=== PATIENT | male | born 1950 | race African-American/Black ===

== ENCOUNTER 2018-01-09 14:34 | Inpatient (IN) | payer MEDICARE, MEDICAID ==
[2018-01-09 14:53] LABS: #Eosinphils 0.4 thou/uL (0.0-0.7); #Lymphocytes 2.5 thou/uL (1.20-3.40); #Monocytes 0.6 thou/uL (0.11-0.59); #Neutrophils 4.7 thou/uL (1.40-6.50); %Eosinophils 4.7 % (0.0-10.0); %Lymphocytes 30.9 % (21.0-51.0); %Monocytes 7.4 % (0.0-10.0); Hemoglobin 15.8 g/dL (14.0-18.0); Mean Corpuscular HGB CONC 33.4 g/dL (32.0-36.0); Mean Corpuscular Volume 89.6 fl (80.0-94.0); Platelet Count 251 thou/uL (130-400); Red Blood Cell (RBC) Count 5.29 mill/uL (4.70-6.10); White Blood Cell (WBC) Count 8.2 thou/uL (4.8-10.8)
--- NOTE | 2018-01-09 14:57 | CT ---
CT OF THE BRAIN WITHOUT CONTRAST: Indication: Stroke activation for altered mental status. Comparison: 05-14-11 FINDINGS: There has been interval development of worsening moderate chronic small vessel white matter ischemic change. Septum pellucidum and third ventricle are midline. No acute infarct, hemorrhage, or hydroceph alus is present. Skull and soft tissues are unremarkable. IMPRESSION: 1. No acute intracranial abnormality. 2. Worsening chronic small vessel white matter ischemic change. 3. Findings called to Dr. Mullins at 2:43 p.m. on 01-09-18. Code CR POS: [facility]
[2018-01-09 14:59] LABS: PTT 25.2 SEC (22.9-36.1); Prothrombin Time 12.9 SEC (12.0-14.7)
[2018-01-09] MEDS ORDERED: Naloxone HCl 0.4 mg/ml Vial ONE (15:02)
[2018-01-09 15:09] LABS: ALT (SGPT) 18 U/L (8-55); AST (SGOT) 17 U/L (5-34); Albumin 4.3 g/dL (3.4-4.8); Alkaline Phosphatase 98 U/L (40-150); Anion Gap 13 mmol/L (10-20); BUN (Urea Nitrogen) 11 mg/dL (8.4-25.7); Bilirubin, Total 1.1 mg/dL (0.2-1.2); Calc. Creatinine Clearance 0 mL/min (70-130); Calcium 9.8 mg/dL (7.8-10.44); Carbon Dioxide 23 mmol/L (23-31); Chloride 104 mmol/L (98-107); Estimated GFR-MDRD 69; Globulin 3.4 g/dL (2.4-3.5); Glucose 184 mg/dL (80-115); Potassium 3.2 mmol/L (3.5-5.1); Protein, Total 7.7 g/dL (5.8-8.1); Sodium 137 mmol/L (136-145)
[2018-01-09 15:12] LABS: CKMB 2.9 ng/mL (0-6.6); Troponin I Less than 0.010 ng/mL (< 0.028)
[2018-01-09 15:22] LABS: Bilirubin Negative (Negative); Blood, Urine Negative (Negative); Clarity CLEAR (Clear); Glucose, Urine (Dipstick) Negative (Negative); Leukocyte Trace (Negative); Nitrite Negative (Negative); Protein, Urine (Dipstick) Trace mg/dL (Neg-Trace); Specific Gravity, Urine 1.017 (1.002-1.036); pH, Urine 7.5 (5.0-9.0)
[2018-01-09 15:24] LABS: Bacteria/HPF None Seen HPF (None Seen); Pathc Cast-AUWi Flag 2.03 (0-2.49); Squamous Epithelial 0-3 HPF (0-3); WBC/HPF 0-3 HPF (0-3)
[2018-01-09 15:28] LABS: Amphetamine Not Detected (NotDetected); Barbiturates Screen Not Detected (NotDetected); Benzodiazepine Screen Not Detected (NotDetected); Cocaine Metabolite Screen Not Detected (NotDetected); Medtox Control Line Valid? VALID (VALID); Medtox Reader # READER 1; Methadone Not Detected (NotDetected); Methamphetamine Not Detected (NotDetected); Opiate Screen Not Detected (NotDetected); Oxycodone Screen Not Detected (NotDetected); Phencyclidine (PCP) Not Detected (NotDetected); THC/Cannabinoid Screen Not Detected (NotDetected); Tricyclic Screen Not Detected (NotDetected)
[2018-01-09] MEDS ORDERED: cefTRIAXone\\ROCEPHIN 1 GM VIAL ONE (15:38)
[2018-01-09] MEDS ORDERED: Azithromycin 500 MG VIAL ONE (15:38)
[2018-01-09 15:43] LABS: Hyaline Casts/LPF 0-3 HYALINE CAST LPF (0-3 Hyaline)
--- NOTE | 2018-01-09 16:06 | RAD ---
CHEST ONE VIEW: History: Altered mental status. Hypotension. Comparison: 07-17-14 FINDINGS: Lungs are hypoinflated with vascular crowding. Heart size is upper limits of normal. No pneumothorax. Unchanged appearance of left shoulder arthroplasty. IMPRESSION: 1. Heart size upper limits of normal. 2. Mild hypoinflation, possible early vascular congestion. POS: C
--- NOTE | 2018-01-09 16:16 | CT ---
CTA OF THE CHEST AND ABDOMEN UTILIZING AORTIC DISSECTION PROTOCOL WITH 3D REFORMATTED IMAGING 01/09/18 COMPARISON: None. FINDINGS: No definite acute aortic stenosis, occlusion or aneurysmal formation is evident. Origin of the great vessels appear within normal limits. No evidence of central pulmonary embolus is evident. Celiac, SMA arteries appear widely patent. There is slight ectasia of the proximal left renal artery measuring u p to 9 mm. The KAYLA appears patent. Both common iliac arteries appear patent. There is bilateral lower lobe atelectasis. There is scattered emphysema. There is fatty infiltration of the liver. There is postsurgical change at the gastroesophageal juncti on. The visualized small bowel appear within normal limits. There is scattered degenerative and osteo arthritic change. No definite acute osseous abnormality is evident. IMPRESSION: 1. No acute aortic stenosis, occlusion or aneurysm formation. 2. Mild ectasia involving the proximal left renal artery. POS: [facility]
[2018-01-09] MEDS ORDERED: Norepinephrine 8 MG/0.9% NS 250 ML ONE (16:23)
--- NOTE | 2018-01-09 17:05 | RAD ---
PORTABLE CHEST ONE VIEW: 01/09/18 at 3:39 p.m. HISTORY: Central line placement. FINDINGS/IMPRESSION: There is a left subclavian central line with tip in the projection of the SVC. No pneumothorax seen. The heart size is normal. There is pulmonary vascular congestion. There are postop changes of left sh oulder arthroplasty. No pneumothoraces or large effusions are seen. The left subclavian central line has been placed since earlier exam of 3:23 p.m. POS: [facility]
[2018-01-09] MEDS ORDERED: Norepinephrine 8 MG/250 ML BAG IVPB PRN (18:32)
[2018-01-09] MEDS ORDERED: Ondansetron ODT 4 MG TAB SL PRN (18:32)
[2018-01-09] MEDS ORDERED: Ondansetron HCl/PF 4 MG/2 ML Vial IVP PRN ×2 (18:32→19:49)
[2018-01-09] MEDS ORDERED: Acetaminophen 325 MG TAB PO PRN ×2 (18:32→19:49)
[2018-01-09 19:16] LABS: Lactic Acid 0.9 mmol/L (0.5-2.2)
[2018-01-09] MEDS ORDERED: Acetaminophen 650 MG Suppository PR PRN (19:49)
[2018-01-09] MEDS ORDERED: Ondansetron ODT 4 MG TAB PO PRN (19:49)
[2018-01-09] MEDS ORDERED: Bisacodyl 5 MG TAB PO PRN (19:49)
[2018-01-09] MEDS: Sodium Chloride 0.9% 1,000 ML IV SCH (20:06)
[2018-01-09] MEDS: Docusate 100 MG CAP PO SCH (21:28)
[2018-01-09] MEDS: Famotidine 20 MG TAB PO SCH (21:28)
--- NOTE | 2018-01-10 04:59 | HP ---
PRIMARY CARE PHYSICIAN: Dr. Sumeet Portillo. CHIEF COMPLAINT: Nausea and vomiting followed by syncope. HISTORY OF PRESENT ILLNESS: This is a 67-year-old -[place] male with a history significant f or hypertension and possible rheumatoid arthritis. He was feeling in his normal state of health unti l after he ate lunch earlier today. Patient ate some Tuna on crackers, the Tuna was made yesterday a nd kept in their refrigerator overnight. Patient reports that he then about 1:00 started to sweat pr ofusely. He then vomited 2 times, they called an ambulance. When the EMS was got there, he was a li ttle bit confused and was very hypertensive with blood pressures greater than 200 systolic. He was t ransported by EMS to the ER on the way to the ER, he has a GCS dropped to the 7-10 range. In the ER, he had a stat CT scan of the head done, which was negative for any intracranial hemorrhage. At that point, patient's severe hypertension dropped precipitously and he became hypotensive. He was also m inimally responsive. His blood pressure dropped into the 60s systolic, he also became clammy. He wa s given a total of 6 liters of normal saline fluid boluses in the emergency room followed by Levophed drip with some improvement in his blood pressure. He was given Narcan just in case he had any opiat es on board and this had no response. Patient was worked up with CT of the brain showing no acute fi ndings. He had a CT dissection protocol, which showed no acute aortic stenosis, occlusion, or aneury sm formation. No central pulmonary embolism. He also had an ultrasound of the abdomen done in the e mergency room, which showed no evidence of abdominal aortic dilatation. Patient improved and his men harsha status turned to normal after the fluids and the Levophed. He is now currently in the ICU. He i s awake, alert, and oriented x4. He just remembers feeling bad and then does not remember anything a fter the ambulance got there until he woke up in the emergency room being covered in warm blankets. PAST MEDICAL HISTORY: 1. Hypertension. 2. Chronic obstructive pulmonary disease. 3. Possible rheumatoid arthritis. PAST SURGICAL HISTORY: 1. Esophageal surgery for a twisted esophagus. 2. Bilateral elbow surgeries. 3. Bilateral wrist surgery. 4. Bilateral knee surgery. 5. Left shoulder surgery. SOCIAL HISTORY: Patient smokes half pack per day of cigarettes. No alcohol or illicit drug use. ALLERGIES: No known drug allergies. CURRENT MEDICATIONS: 1. Hydrocodone 10/325 one every 8 hours as needed for pain. 2. Folic acid 1 mg daily. 3. Celebrex 200 mg 2 times a day. 4. Lisinopril/hydrochlorothiazide 20/12.5 mg 1 tab twice a day. 5. Hydroxyzine 25 mg every 8 hours. 6. Tamsulosin 0.4 mg daily. 7. Methotrexate 2.5 mg six tabs orally once a week. Patient also reports that he is on some new blo od pressure medicine. He does not know what it is. He also takes one twice a day. FAMILY HISTORY: Patient reports that both of his parents are . He does not know of any medical problems in them or in any of his cousins. REVIEW OF SYSTEMS: Constitutional: No fevers. He did have some chills with sweats only, none befor e that. Eyes: No double vision or blurred vision. ENT: No congestion, drainage, or sore throat. Cardiovascular: Syncope as per HPI. No chest pain, no racing heart. Pulmonary: No coughing, whee zing, or shortness of breath. Gastrointestinal: No abdominal pain. He did develop nausea and vomit ed twice when he had no blood that he knows of in the vomitus. He is no longer nauseated or vomiting now. No abdominal pain. GI: No diarrhea or constipation. Genitourinary: No dysuria or hematuria . Musculoskeletal: He has chronic pain in bilateral wrists, hands, knees, and his left shoulder wit h some deformity in his hands. Skin: He has some chronic rash on his back, which is thought to be s econdary to his rheumatologic disease. Neurologic: No numbness, tingling, or focal weakness. He do es not report any dysphagia or slurred speech. PHYSICAL EXAMINATION: VITAL SIGNS: Blood pressure 120/80 currently on small dose of Levophed, pulse 88, respirations 18, O 2 sat 100% on 2 liters, temperature 98.2. His temperature had dropped to 95.9 in the emergency room and his pulse had actually was low during his hypotensive episode into the 60s. GENERAL: This is a well-developed, well-nourished male in no apparent distress. HEENT: Pupils equal, round, and reactive to light. Oropharynx clear without lesions, erythema, or e xudate. NECK: Supple, no lymphadenopathy, no thyroid nodules or enlargement, no JVD. HEART: Regular rate and rhythm. No murmurs, rubs, or gallops. LUNGS: Clear to auscultation bilaterally. No wheezes, crackles, or rhonchi. ABDOMEN: Soft, nontender to palpation, normoactive bowel sounds, no hepatosplenomegaly or other mass es. EXTREMITIES: No clubbing, cyanosis, or edema. He does have some deformity of his MCP joints in his bilateral hands and some weakness and pain with movement of his fingers in his hands with equal bilat erally. SKIN: No rashes or lesions noted. NEUROLOGIC: He has intact strength and sensation in all extremities except for weakness in his hands from the pain and he has no facial droop. His extraocular movements are intact and equal bilaterall y. His cranial nerves are intact and equal bilaterally as well. PSYCHIATRIC: Alert and oriented x3. Memory: Normal mood and affect. LABORATORY DATA: CBC within normal limits. Coagulation profile was normal. Complete metabolic pane l normal except for potassium of 3.2 and glucose of 183. His lactic acid was initially 2.3, repeat w as 0.9 after fluids. Creatine kinase is a little elevated at 267. His cardiac marker sets are negat dyan x1 and brain natriuretic peptide is less than 10. Urinalysis was just trace leukocyte esterase, no white blood cells, no bacteria. Urine tox screen was negative. EKG, patient had a normal sinus r hythm on EKG. He does have some prolongation to QT. No arrhythmias or acute ST changes. Chest x-ra y: I did review the chest x-ray along with the radiologist's report, it does show some heart size up per limits of normal and mild hypoinflation, which could possibly be some bibasilar infiltrates. Rep eat chest x-ray was done after the left subclavian, which showed no pneumothorax, but there was some pulmonary vascular congestion changes. ASSESSMENT: 1. Syncope. This is a broad differential could be an acute cerebrovascular accident versus an acute coronary syndrome versus arrhythmia versus neurocardiogenic syncope or vasovagal episode or it could be related to some toxin ingestion. Thus far, patient's workup has been negative. It is little odd that he had severe hypertension when he was started to have the altered mental status and then later had hypotension. Uncertain the etiology of this pattern, he did have some bradycardia or some lower heart rates along with hypertension, some vagal etiology of the hypotension is possibility. There i s concern for possible food poisoning with his nausea and vomiting after eating that these Tuna fish from yesterday and possibly histamine reaction from that as well. We will watch the patient closely in the ICU. We will wean the Levophed as tolerated. We will get serial markers and echocardiogram. We will also consider getting an MRI showed that the remainder of the workup continued to be negativ e. I will consult Cardiology and Pulmonology as well to assist with this patient's care. 2. Hypotension, improved with fluids and Levophed. We will wean Levophed as able. 3. History of chronic obstructive pulmonary disease, currently breathing well without any hypoxia. 4. History of hypertension. We will hold any antihypertensives for now until his blood pressure imp roves. 5. Nausea and vomiting, possibly toxin ingestion. We will put him on clear liquids for now and adva nce as tolerated and give him antiemetics as needed. 6. Gastrointestinal prophylaxis. We will put patient on Pepcid twice a day. 7. Deep venous thrombosis prophylaxis. We will put patient on Lovenox and sequential compression de vices while in bed. 8. Code status. I did discuss with the patient. He is a FULL CODE. Should he be incapacitated, he states that his cousin, Christian Sauer would be his medical decision maker.
[2018-01-10 05:47] LABS: #Eosinphils 0.2 thou/uL (0.0-0.7); #Lymphocytes 1.5 thou/uL (1.20-3.40); #Monocytes 0.6 thou/uL (0.11-0.59); #Neutrophils 4.1 thou/uL (1.40-6.50); %Basophils 0.4 % (0.0-1.0); %Eosinophils 2.8 % (0.0-10.0); %Monocytes 9.2 % (0.0-10.0); %Neutrophils 64.7 % (42.0-75.0); Hemoglobin 12.1 g/dL (14.0-18.0); Mean Corpuscular HGB CONC 34.3 g/dL (32.0-36.0); Mean Corpuscular Hemoglobin 30.6 pg (27.0-31.0); Mean Corpuscular Volume 89.1 fL (78.0-98.0); Mean Platelet Volume 7.6 fL (7.4-10.4); Platelet Count 181 thou/uL (130-400); RBC Distribution Width 13.8 % (11.5-14.5); Red Blood Cell (RBC) Count 3.96 mill/uL (4.70-6.10); White Blood Cell (WBC) Count 6.4 thou/uL (4.8-10.8)
[2018-01-10 05:57] LABS: Anion Gap 8 mmol/L (10-20); BUN (Urea Nitrogen) 8 mg/dL (8.4-25.7); Calc. Creatinine Clearance 123 mL/min (70-130); Calcium 7.5 mg/dL (7.8-10.44); Carbon Dioxide 23 mmol/L (23-31); Chloride 117 mmol/L (98-107); Estimated GFR-MDRD Greater than 90; Glucose 79 mg/dL (80-115); Potassium 3.4 mmol/L (3.5-5.1); Sodium 145 mmol/L (136-145)
[2018-01-10] MEDS: Sodium Chloride 0.9% 1,000 ML IV SCH ×2 (07:10→21:38)
--- NOTE | 2018-01-10 09:48 | PDOC.PN ---
- Subjective Encounter Start Date: 01/10/18 Encounter Start Time: 12:40 Subjective: Patient feels much better today. No more N/V. No dizziness. Off -: Levophed since last night. - Objective Resuscitation Status: Resuscitation Status FULL:Full Resuscitation MAR Reviewed: Yes Vital Signs & Weight: Vital Signs (12 hours) Temp Pulse Resp Pulse Ox 01/10/18 08:00 98.3 F 90 18 100 01/10/18 07:00 98.3 F 01/10/18 04:00 98.9 F 01/10/18 00:00 98.9 F Weight Weight 184 lb 8.43 oz Most Recent Monitor Data Heart Rate from ECG 86 NIBP 139/81 NIBP BP-Mean 96 Respiration from ECG 14 SpO2 100 I&O: 01/09/18 01/10/18 01/11/18 06:59 06:59 06:59 Intake Total 1835 Output Total 2235 175 Balance -400 -175 Result Diagrams: 01/10/18 05:13 01/10/18 05:13 Phys Exam - Physical Examination Constitutional: NAD HEENT: moist MMs Respiratory: no wheezing, no rales, no rhonchi Cardiovascular: RRR, no significant murmur Gastrointestinal: soft, non-tender, positive bowel sounds Musculoskeletal: no edema Neurological: non-focal, moves all 4 limbs Psychiatric: normal affect, A&O x 3 Dx/Plan (1) Shock Code(s): R57.9 - SHOCK, UNSPECIFIED Status: Resolved (2) Nausea and vomiting Code(s): R11.2 - NAUSEA WITH VOMITING, UNSPECIFIED Status: Resolved (3) Syncope Code(s): R55 - SYNCOPE AND COLLAPSE Status: Resolved Comment: associated with very labile blood pressure, possibly vasovagal vs. cardiogenic (4) Hypertension Code(s): I10 - ESSENTIAL (PRIMARY) HYPERTENSION Status: Chronic (5) COPD (chronic obstructive pulmonary disease) Status: Chronic - Plan cont current plan of care, PT/OT, DVT proph w/lovenox, DVT proph w/SCDs Out of ICU to telemetry. * . - Discharge Day Encounter end time: 12:50
[2018-01-10] MEDS: Famotidine 20 MG TAB PO SCH ×2 (10:10→21:35)
[2018-01-10] MEDS: Enoxaparin Sodium 40 MG/0.4 ML SYRINGE SC SCH (10:10)
[2018-01-10] MEDS: Docusate 100 MG CAP PO SCH ×2 (10:10→21:35)
[2018-01-10 11:33] LABS: CKMB 3.5 ng/mL (0-6.6); Troponin I Less than 0.010 ng/mL (< 0.028)
[2018-01-10] MEDS ORDERED: HYDROcodone/Acetaminophen 10/325 mg Tablet PO PRN (12:37)
[2018-01-10 13:21] VITALS: BMI 28.9
[2018-01-10] MEDS ORDERED: Potassium Chloride 20 MEQ TAB PO SCH (19:45)
--- NOTE | 2018-01-10 20:53 | CON ---
DATE OF CONSULTATION: 01/10/2018 HISTORY OF PRESENT ILLNESS: Mr. Moore has no recollection most of yesterday afternoon and last nig ht. He feels fine now and says he knows where he is, what date is and he is accurate with his questi ons. Yesterday, he ate some tuna salad and crackers. He made the tuna the day before and put it immediate ly in the refrigerator. Apparently, according to the admission history and physical, when EMS arrived, he was extremely hyper tensive. He became less responsive during transport and was hypotensive when he arrived in the emerg ency room. I cannot find any EMS run sheet to see what he was given during transport, but I would wo nder if he was not treated with some intravenous antihypertensive. He was volume resuscitated and di d not require intubation. He is now awake and alert. PAST MEDICAL HISTORY: Remarkable for hypertension, COPD, and rheumatoid arthritis on methotrexate. PAST SURGICAL HISTORY: 1. History of esophageal surgery. 2. History of elbow surgery. 3. History of wrist surgery, knee surgery and shoulder surgery. SOCIAL HISTORY: He is a half a pack a day smoker. He does not drink. He does not use drugs. ALLERGIES: He has no drug allergies. MEDICATIONS: Prior to admission, he was on folate, Celebrex, lisinopril, hydrochlorothiazide, hydrox yzine, Flomax, methotrexate, and hydrocodone p.r.n. FAMILY HISTORY: Negative for lung disease in early age. REVIEW OF SYSTEMS: A 10-point review of systems otherwise negative. PHYSICAL EXAMINATION: VITAL SIGNS: Blood pressure 146/95, heart rate is 90, respiratory rate is 20. HEENT: Pupils are equal. Sclerae is anicteric. Extraocular movements are intact. NECK: Supple, no lymphadenopathy. LUNGS: Clear. HEART: Regular rhythm. S1 and S2 are normal. ABDOMEN: Soft and nontender. EXTREMITIES: No clubbing, cyanosis, or edema. LABORATORY DATA: White count 6.4, hemoglobin 12.1, platelets 181. Sodium 145, potassium 3.4, chloride 117, bicarb 23, BUN 8, creatinine 0.69. IMPRESSION AND PLAN: Nausea and vomiting with hypertension. It does not sound like his blood pressure was high enough to make him vomit. It is unclear what triggered the hypotension. This is all resolved. His troponin done suggest a myocardial ischemic event. I was wondering if this could have all been a n atypical presentation for coronary ischemia, but with negative troponin, it becomes much less likel y. He is hyperchloremic. This most likely secondary to his volume resuscitation. Microbiology has been reviewed. All urine and blood cultures are negative. I would wonder if his hypotension was in the downstream effect of treatment of his hypertension in th e ambulance, we asked the nurse to try to obtain EMS run sheet. He is stable to move out of the critical care unit in my opinion. This is a 70-minute consult, greater than 50% of the time was spent on the unit coordinating care.
[2018-01-11] MEDS: Sodium Chloride 0.9% 1,000 ML IV SCH ×2 (02:00→21:15)
--- NOTE | 2018-01-11 02:32 | CON ---
DATE OF CONSULTATION: 01/10/2018 CARDIOLOGY CONSULTATION REASON FOR CONSULTATION: Labile hypertension, severe hypertension followed by hypotension of uncerta in etiology. HISTORY OF PRESENT ILLNESS: Mr. Moore is a very pleasant 67-year-old gentleman. The patient was f eeling well in his usual state of relatively good health yesterday when he had the onset of severe sw eating (diaphoresis). He vomited twice. An ambulance was called, he was somewhat confused, extremel y hypertensive with blood pressure over 200 systolic, who was transferred to the emergency room and b ecame less responsive. In the emergency room, he had a stat CT of the head, which is negative for he morrhage. Certainly, his hypertension dropped to severe hypotension. He required Levophed and 6 lit ers of normal saline. He had a CT of the brain, he had a CT dissection protocol noticed no dissectio ns, no central pulmonary embolism. Patient is feeling better today, but is uncertain what caused all these episodes. PAST MEDICAL HISTORY: 1. Hypertension. 2. Chronic obstructive pulmonary disease. 3. Rheumatoid arthritis. PAST SURGICAL HISTORY: 1. Esophageal surgery. 2. Elbow surgery, wrist surgery, shoulder surgery. ALLERGIES: None known. MEDICATIONS: 1. Celebrex. 2. Lisinopril/hydrochlorothiazide. 3. Hydroxyzine. 4. Tamsulosin. 5. Methotrexate. FAMILY HISTORY: Negative for heart disease at a young age. SOCIAL HISTORY: No tobacco or alcohol. REVIEW OF SYSTEMS: Constitutional: No significant weight gain or loss. Vision: No changes. Heari ng: No changes. Pulmonary: No cough or wheezing. Gastrointestinal: No nausea, vomiting, diarrhea . Skin: No rashes. Neurologic: No unilateral weakness or numbness. Psychiatric: No unusual depr ession or anxiety. PHYSICAL EXAMINATION: GENERAL: This is a very pleasant, agreeable 67-year-old -[place] gentleman. VITAL SIGNS: His blood pressure 160/95 but earlier was 125/93, pulse 80s, regular. EYES: Sclerae nonicteric. Mouth and mucous membranes moist. NECK: Supple, no lymphadenopathy. LUNGS: Clear. No wheezing, rales, or rhonchi. CARDIAC: Normal S1, normal S2. There is no murmur, rub, or gallop. ABDOMEN: Soft, nontender. EXTREMITIES: No clubbing or cyanosis. There is no edema. Posterior tibial and dorsalis pedis pulse s are palpable. LABORATORY AND X-RAY FINDINGS: Potassium is 3.4. QT was very slightly prolonged on EKG. QT correct ed was 480. ASSESSMENT: 1. Episode of diaphoresis of uncertain etiology. 2. Transient confusion of uncertain etiology. 3. Mild hypokalemia. 4. Slight prolongation of QT just barely out of the normal range. 5. Labile blood pressure of uncertain etiology. PLAN: 1. Replete potassium. 2. Echocardiogram and stress testing tomorrow screened for significant heart disease. I will be out tomorrow. Dr. Brantley will be seeing the patient.
[2018-01-11] MEDS ORDERED: Potassium Chloride 40 MEQ in Premix Bag 1 BAG IVPB SCH (11:00)
[2018-01-11] MEDS ORDERED: Potassium Chloride 40 MEQ in Sodium Chloride 0.9% 250 ML 250 ML IVPB SCH (11:15)
--- NOTE | 2018-01-11 12:24 | NM ---
CARDIAC SPECT: CLINICAL HISTORY: 67-year-old male with chest pain, COPD, smoker, and hypertension. TECHNIQUE: A myocardial perfusion scan was performed using the single isotope one day protocol with technetium-9 9m sestamibi. 9 mCi were injected intravenously for the rest exam followed by 30 mCi for the stress e xam. Pharmacologic stress with Lexiscan was monitored and interpreted by Dr. Brantley. FINDINGS: Homogeneous tracer distribution is seen in the myocardial segments on stress and rest images without fixed or reversible defects. GATED SPECT LVEF: 54%. WALL MOTION EXAM: Normal. IMPRESSION: Normal myocardial perfusion scan. POS: [facility]
[2018-01-11] MEDS: Enoxaparin Sodium 40 MG/0.4 ML SYRINGE SC SCH (12:42)
[2018-01-11] MEDS: Folic Acid 1 MG TAB PO SCH (12:42)
[2018-01-11] MEDS: Famotidine 20 MG TAB PO SCH ×2 (12:42→21:10)
[2018-01-11] MEDS: Tamsulosin HCl 0.4 MG CAP PO SCH (12:42)
[2018-01-11] MEDS: Docusate 100 MG CAP PO SCH (12:42)
--- NOTE | 2018-01-11 13:02 | PRG ---
DATE OF SERVICE: 01/11/2018 SUBJECTIVE: Dong Moore has remained stable with his vital signs. He has no recurrence of hypoten selvin. I still have not located the EMS run sheet to see if any antihypertensives were given intravenously d uring transport. He has had a stress test today that showed no evidence of reversible ischemia and a normal ejection f raction. He is stable from a pulmonary standpoint. We will sign off.
--- NOTE | 2018-01-11 15:53 | PDOC.PN ---
- Subjective Encounter Start Date: 01/11/18 Encounter Start Time: 15:50 Subjective: feelw ell. no new complaints. -: no dizziness,chest pain/SOB - Objective Resuscitation Status: Resuscitation Status FULL:Full Resuscitation MAR Reviewed: Yes Vital Signs & Weight: Vital Signs (12 hours) Temp Pulse Resp BP Pulse Ox 01/11/18 12:47 82 14 131/99 H 99 01/11/18 08:00 98.2 F 76 14 01/11/18 07:58 98.2 F 76 159/92 H 93 L Weight Admit Weight 184 lb Weight 185 lb 3.2 oz Most Recent Monitor Data Heart Rate from ECG 86 NIBP 125/93 NIBP BP-Mean 104 Respiration from ECG 20 SpO2 100 I&O: 01/10/18 01/11/18 01/12/18 06:59 06:59 06:59 Intake Total 1835 1736 Output Total 2235 2275 Balance -400 -539 Result Diagrams: 01/10/18 05:13 01/10/18 05:13 Additional Labs: Microbiology 01/09/18 15:00 Urine montalvo catheter Urine Culture - Final NO GROWTH AT 36 HOURS 01/09/18 16:26 Venous blood - Right Arm Blood Culture - Preliminary Specimen has been received and culture in progress. No Growth to date. 01/09/18 16:26 Venous blood - Right Arm Blood Culture - Preliminary NO GROWTH AT 48 HOURS 01/09/18 15:58 Venous blood - Right Hand Blood Culture - Preliminary Specimen has been received and culture in progress. No Growth to date. 01/09/18 15:58 Venous blood - Right Hand Blood Culture - Preliminary NO GROWTH AT 48 HOURS Laboratory Tests 01/09/18 01/09/18 01/10/18 14:45 15:08 10:35 Troponin I Less than 0.010 Less than 0.010 B-Natriuretic Peptide Less than 10.0 labs reviewed Phys Exam - Physical Examination Constitutional: NAD HEENT: PERRLA, moist MMs, sclera anicteric, oral pharynx no lesions Neck: no nodes, no JVD, supple, full ROM Respiratory: no wheezing, no rales, no rhonchi, wheezing present, clear to auscultation bilateral Cardiovascular: RRR, no significant murmur, no rub Gastrointestinal: soft, non-tender, no distention, positive bowel sounds Musculoskeletal: no edema, pulses present Neurological: non-focal, normal sensation, moves all 4 limbs Psychiatric: normal affect, A&O x 3 Skin: no rash Dx/Plan (1) Syncope Code(s): R55 - SYNCOPE AND COLLAPSE Status: Acute Comment: associated with very labile blood pressure, possibly vasovagal vs. cardiogenic (2) COPD (chronic obstructive pulmonary disease) Status: Chronic (3) Hypertension Code(s): I10 - ESSENTIAL (PRIMARY) HYPERTENSION Status: Chronic (4) Nausea and vomiting Code(s): R11.2 - NAUSEA WITH VOMITING, UNSPECIFIED Status: Resolved (5) Shock Code(s): R57.9 - SHOCK, UNSPECIFIED Status: Resolved (6) Osteoarthritis of shoulder Code(s): M19.019 - PRIMARY OSTEOARTHRITIS, UNSPECIFIED SHOULDER Status: Acute - Plan plan discussed w/ family, out of bed/ambulate, DVT proph w/SCDs Hemodynamically stable. BP under control.no low readings -: Normal stress test .ECHo results pending. -: infectious work up nagative so far. -: will follow. -: if stable.nay WOODS in am * . Review of Systems - Review of Systems Constitutional: negative: fever, chills, sweats, weakness, malaise, other ENT: negative: Ear Pain, Ear Discharge, Nose Pain, Nose Discharge, Nose Congestion, Mouth Pain, Mouth Swelling, Throat Pain, Throat Swelling, Other Respiratory: negative: Cough, Dry, Shortness of Breath, Hemoptysis, SOB with Excertion, Pleuritic Pain, Sputum, Wheezing Cardiovascular: negative: chest pain, palpitations, orthopnea, paroxysmal nocturnal dyspnea, edema, light headedness, other Gastrointestinal: negative: Nausea, Vomiting, Abdominal Pain, Diarrhea, Constipation, Melena, Hematochezia, Other Genitourinary: negative: Dysuria, Frequency, Incontinence, Hematuria, Retention , Other Musculoskeletal: negative: Neck Pain, Shoulder Pain, Arm Pain, Back Pain, Hand Pain, Leg Pain, Foot Pain, Other Skin: negative: Rash, Lesions, Shankar, Bruising, Other Neurological: negative: Weakness, Numbness, Incoordination, Change in Speech, Confusion, Seizures, Other - Medications/Allergies Allergies/Adverse Reactions: Allergies Allergy/AdvReac Type Severity Reaction Status Date / Time No Known Allergies Allergy Verified 05/20/15 09:46 Medications: Current Medications Acetaminophen (Tylenol) 650 mg PO Q4H PRN PRN Reason: Headache/Fever or Pain Acetaminophen (Tylenol) 650 mg [place] Q4H PRN PRN Reason: Headache/Fever or Pain Hydrocodone Bitart/Acetaminophen ([place] 10/325) 1 tab PO Q8HR PRN PRN Reason: Pain Last Admin: 01/11/18 12:41 Dose: 1 tab Bisacodyl (Dulcolax) 10 mg PO DAILYPRN PRN PRN Reason: Constipation Docusate Sodium (Colace) 100 mg PO BID [facility] Last Admin: 01/11/18 12:42 Dose: 100 mg Enoxaparin Sodium (Lovenox) 40 mg SC 0900 [facility] Last Admin: 01/11/18 12:42 Dose: 40 mg Famotidine (Pepcid) 20 mg PO BID [facility] Last Admin: 01/11/18 12:42 Dose: 20 mg Folic Acid (Folvite) 1 mg PO DAILY [facility] Last Admin: 01/11/18 12:42 Dose: 1 mg Sodium Chloride (Normal Saline 0.9%) 1,000 mls @ 100 mls/hr IV .Q10H [facility] Last Admin: 01/11/18 02:00 Dose: Not Given Ondansetron HCl (Zofran Odt) 4 mg PO Q6H PRN PRN Reason: Nausea/Vomiting Ondansetron HCl (Zofran) 4 mg IVP Q6H PRN PRN Reason: Nausea/Vomiting Sodium Chloride (Flush - Normal Saline) 10 ml IVF Q12HR [facility] Last Admin: 01/10/18 21:37 Dose: 10 ml Sodium Chloride (Flush - Normal Saline) 10 ml IVF PRN PRN PRN Reason: Saline Flush Tamsulosin HCl (Flomax) 0.4 mg PO DAILY [facility] Last Admin: 01/11/18 12:42 Dose: 0.4 mg
[2018-01-12] MEDS ORDERED: Lisinopril/Hydrochlorothiazide 20 mg/12.5 mg Tablet PO SCH ×2 (09:45→21:00)
[2018-01-12] MEDS: Famotidine 20 MG TAB PO SCH (10:09)
[2018-01-12] MEDS: Enoxaparin Sodium 40 MG/0.4 ML SYRINGE SC SCH (10:09)
[2018-01-12] MEDS: Docusate 100 MG CAP PO SCH (10:10)
[2018-01-12] MEDS: Folic Acid 1 MG TAB PO SCH (10:10)
[2018-01-12] MEDS: Tamsulosin HCl 0.4 MG CAP PO SCH (10:10)
--- NOTE | 2018-01-12 14:16 | PDOC.PN ---
- Subjective Encounter Start Date: 01/12/18 Encounter Start Time: 14:14 Subjective: feels well. no new complaints..no ON events -: eager to go home - Objective Resuscitation Status: Resuscitation Status FULL:Full Resuscitation MAR Reviewed: Yes Vital Signs & Weight: Vital Signs (12 hours) Temp Pulse Pulse Resp BP BP Pulse Ox 01/12/18 10:17 78 01/12/18 10:06 98.5 F 78 16 153/110 H 01/12/18 09:09 79 155/57 H 01/12/18 03:24 98.1 F 71 18 167/91 H 96 Weight Admit Weight 188 lb 0.869 oz Weight 184 lb 14.4 oz Most Recent Monitor Data Heart Rate from ECG 86 NIBP 125/93 NIBP BP-Mean 104 Respiration from ECG 20 SpO2 100 I&O: 01/11/18 01/12/18 01/13/18 06:59 06:59 06:59 Intake Total 1736 520 Output Total 2275 1625 Balance -539 -1105 Result Diagrams: 01/10/18 05:13 01/10/18 05:13 Additional Labs: Microbiology 01/09/18 15:00 Urine montalvo catheter Urine Culture - Final NO GROWTH AT 36 HOURS 01/09/18 16:26 Venous blood - Right Arm Blood Culture - Preliminary NO GROWTH AT 48 HOURS 01/09/18 15:58 Venous blood - Right Hand Blood Culture - Preliminary NO GROWTH AT 48 HOURS Phys Exam - Physical Examination Constitutional: NAD HEENT: PERRLA, moist MMs, sclera anicteric, oral pharynx no lesions Neck: no nodes, no JVD, supple, full ROM Respiratory: no wheezing, no rales, no rhonchi, clear to auscultation bilateral Cardiovascular: RRR, no significant murmur, no rub Gastrointestinal: soft, non-tender, no distention, positive bowel sounds Musculoskeletal: no edema, pulses present Neurological: non-focal, normal sensation, moves all 4 limbs Psychiatric: normal affect, A&O x 3 Skin: no rash Dx/Plan (1) Syncope Code(s): R55 - SYNCOPE AND COLLAPSE Status: Acute Comment: associated with very labile blood pressure, possibly vasovagal vs. cardiogenic (2) COPD (chronic obstructive pulmonary disease) Status: Chronic (3) Hypertension Code(s): I10 - ESSENTIAL (PRIMARY) HYPERTENSION Status: Chronic (4) Nausea and vomiting Code(s): R11.2 - NAUSEA WITH VOMITING, UNSPECIFIED Status: Resolved (5) Shock Code(s): R57.9 - SHOCK, UNSPECIFIED Status: Resolved (6) Osteoarthritis of shoulder Code(s): M19.019 - PRIMARY OSTEOARTHRITIS, UNSPECIFIED SHOULDER Status: Acute - Plan DVT proph w/SCDs BP on higher side today w/o any IVF -: restart Lisinopril/HCTZ -: ECHo and stress test within Nl limits -: nay WOODS today if cleared by Cardiology -: Hemodynamically stable.OP f/u w PCP & cardiology * . Review of Systems - Review of Systems Constitutional: negative: fever, chills, sweats, weakness, malaise, other ENT: negative: Ear Pain, Ear Discharge, Nose Pain, Nose Discharge, Nose Congestion, Mouth Pain, Mouth Swelling, Throat Pain, Throat Swelling, Other Respiratory: negative: Cough, Dry, Shortness of Breath, Hemoptysis, SOB with Excertion, Pleuritic Pain, Sputum, Wheezing Cardiovascular: negative: chest pain, palpitations, orthopnea, paroxysmal nocturnal dyspnea, edema, light headedness, other Gastrointestinal: negative: Nausea, Vomiting, Abdominal Pain, Diarrhea, Constipation, Melena, Hematochezia, Other Genitourinary: negative: Dysuria, Frequency, Incontinence, Hematuria, Retention , Other Musculoskeletal: negative: Neck Pain, Shoulder Pain, Arm Pain, Back Pain, Hand Pain, Leg Pain, Foot Pain, Other Neurological: negative: Weakness, Numbness, Incoordination, Change in Speech, Confusion, Seizures, Other - Medications/Allergies Allergies/Adverse Reactions: Allergies Allergy/AdvReac Type Severity Reaction Status Date / Time No Known Allergies Allergy Verified 05/20/15 09:46 Medications: Current Medications Acetaminophen (Tylenol) 650 mg PO Q4H PRN PRN Reason: Headache/Fever or Pain Acetaminophen (Tylenol) 650 mg [place] Q4H PRN PRN Reason: Headache/Fever or Pain Hydrocodone Bitart/Acetaminophen ([place] 10/325) 1 tab PO Q8HR PRN PRN Reason: Pain Last Admin: 01/11/18 12:41 Dose: 1 tab Bisacodyl (Dulcolax) 10 mg PO DAILYPRN PRN PRN Reason: Constipation Docusate Sodium (Colace) 100 mg PO BID [facility] Last Admin: 01/12/18 10:10 Dose: 100 mg Enoxaparin Sodium (Lovenox) 40 mg SC 0900 [facility] Last Admin: 01/12/18 10:09 Dose: 40 mg Famotidine (Pepcid) 20 mg PO BID [facility] Last Admin: 01/12/18 10:09 Dose: 20 mg Folic Acid (Folvite) 1 mg PO DAILY [facility] Last Admin: 01/12/18 10:10 Dose: 1 mg Lisinopril/HCTZ (Prinizide 20-12.5) 1 tab PO BID [facility] Last Admin: 01/12/18 10:17 Dose: 1 tab Ondansetron HCl (Zofran Odt) 4 mg PO Q6H PRN PRN Reason: Nausea/Vomiting Ondansetron HCl (Zofran) 4 mg IVP Q6H PRN PRN Reason: Nausea/Vomiting Sodium Chloride (Flush - Normal Saline) 10 ml IVF Q12HR [facility] Last Admin: 01/11/18 20:50 Dose: 10 ml Sodium Chloride (Flush - Normal Saline) 10 ml IVF PRN PRN PRN Reason: Saline Flush Tamsulosin HCl (Flomax) 0.4 mg PO DAILY [facility] Last Admin: 01/12/18 10:10 Dose: 0.4 mg
[2018-01-12 17:12] VITALS: BP 129/84; TEMP 97.5
--- NOTE | 2018-01-13 01:32 | DIS ---
DATE OF ADMISSION: 01/09/2018 DATE OF DISCHARGE: 01/12/2018 CONDITION AT THE TIME OF DISCHARGE: Stable and improved. DISCHARGE DISPOSITION: Home. PRIMARY CARE PHYSICIAN: Sumeet Portillo D.O. DISCHARGE DIAGNOSES: 1. Syncope, likely secondary to hypotension and labile blood pressure. 2. Hypotension, resolved. 3. History of essential hypertension. 4. Chronic obstructive pulmonary disease. 5. Hypotensive shock, resolved. 6. Chronic osteoarthritis of the shoulder. DISCHARGE MEDICATIONS: Remain the same as admission medication, lisinopril/hydrochlorothiazide 20/12 .5 b.i.d., methotrexate every 7 days, tamsulosin 0.4 mg daily, folic acid daily, celecoxib 200 p.o. b .i.d., [place] as needed. PROCEDURES DONE IN THE HOSPITAL: 1. CT scan of the brain upon presentation, which does not show any acute changes. No infarction or hemorrhage. 2. CT with aortic dissection protocol, which was negative for the same. 3. A nuclear medicine stress test which is unremarkable. Ejection fraction 54%. 4. Transthoracic echocardiogram which is suggestive of some mild diastolic dysfunction, otherwise no rmal EF 50%-55%. INHOUSE CONSULTATION: 1. Cardiology, Dr. Dey and Dr. Brantley. 2. Pulmonary Medicine, Dr. Juan. HISTORY OF PRESENTING ILLNESS: Mr. Moore is a 67-year-old male with past medical history of hypert ension, COPD, rheumatoid arthritis, who was brought in for syncope. He called EMS because he was fee ling bad after eating some Tuna and had vomited. When EMS got there, they found him to be hypertensi ve with systolic blood pressure greater than 200. In the ambulance, his GCS dropped to the 7-10 rang e. Upon presentation to the ER, a stat head CT was done which was negative for intracranial hemorrha ge. At some point, his blood pressure dropped precipitously and he became hypotensive. His systolic blood pressure went down to 60s. He was resuscitated with a lot of fluid and was started on Levophe d drip and with improvement in his symptoms. He also underwent a CT with aortic dissection protocol, which was negative as well. After fluid resuscitation, his mentation somewhat improved and he was a dmitted to the ICU for further workup. Please see admission history and physical for further details . HOSPITAL COURSE: Because of syncope and hypotension, it was thought that he might have had an acute coronary event. Cardiology and Pulmonary Critical Care Medicine were consulted and he was monitored on telemetry unit. His hypotension and improved and he was weaned off of the Levophed. Dr. Dey s aw the patient and recommended undergoing a nuclear medicine stress test and cardiac echo. Both were done and it was unremarkable. He did receive some more fluids which were eventually stopped. He di d not have any further episodes of hypotension in the hospital and remained quite hypertensive afterw ards. He was also seen by Critical Care, Dr. Juan, who also recommended that his hypotension was a result of him receiving multiple antihypertensives en route by EMS. By the time of discharge, he was cleared by Pulmonary Medicine and Cardiology in his usual health. Jude macias has no further symptoms. His cardiac workup was unremarkable. He was seen and examined prior to discharge. Please see hospitalist progress note from today's date for further detail including [id number] interaction. He has been cleared by Cardiology for dischar ge. He is instructed to follow up with his own revenue tax specialist, Dr. Dey as well as with his primary care physician in the outpatient setting. He verbalized understanding. Total time spent in the discharge of this patient 32 minutes.
[2018-01-13] MEDS ORDERED: Regadenoson 0.4 MG/5 ML SYRINGE ONE (12:10)
== END 2018-01-12 18:05 | disposition home or self-care (01) | DRG 293 ==
LOC: ERS 14:34 → CCU 18:22 → 2NO 01-10 14:43
PROVIDERS: ADMIT Emergency Medicine; ATTEND Emergency Medicine
DX: R57.9 Shock, unspecified (principal); J44.9 Chronic obstructive pulmonary disease, unspecified; M06.9 Rheumatoid arthritis, unspecified; I25.10 Atherosclerotic heart disease of native coronary artery without angina pectoris; F17.210 Nicotine dependence, cigarettes, uncomplicated; Z79.891 Long term (current) use of opiate analgesic; Z79.899 Other long term (current) drug therapy; E87.6 Hypokalemia; I45.81 Long QT syndrome; E87.8 Other disorders of electrolyte and fluid balance, not elsewhere classified; M19.019 Primary osteoarthritis, unspecified shoulder; I10 Essential (primary) hypertension
CPT/HCPCS: 36415; 36416; 36556; 51702; 70450; 71045; 71275; 78452; 80048; 80053; 80306; 81003; 81015; 82553; 83605; 83880; 84484; 85025; 85610; 85730; 87040; 87086; 93005; 93017; 93306; 96361; 96365; 96366; 96375; 99292; A4216; A9500; G8978-GP-CL; G8979-GP-CJ; G8987-GO-CM; G8988-GO-CM; G8989-GO-CM; J0456; J0696; J1650; J2310; J3480; J7050

== ENCOUNTER 2018-02-06 11:37 | Emergency (ER) | payer MEDICARE, MEDICAID ==
[2018-02-06 12:19] LABS: #Basophils 0.1 thou/uL (0.0-0.2); #Eosinphils 0.2 thou/uL (0.0-0.7); #Lymphocytes 1.6 thou/uL (1.20-3.40); #Monocytes 0.4 thou/uL (0.11-0.59); #Neutrophils 2.9 thou/uL (1.40-6.50); %Basophils 1.3 % (0.0-1.0); %Eosinophils 4.3 % (0.0-10.0); %Lymphocytes 30.1 % (21.0-51.0); %Neutrophils 56.4 % (42.0-75.0); Hemoglobin 12.6 g/dL (14.0-18.0); Mean Corpuscular HGB CONC 34.7 g/dL (32.0-36.0); Mean Corpuscular Hemoglobin 31.6 pg (27.0-31.0); Mean Corpuscular Volume 90.9 fL (78.0-98.0); Mean Platelet Volume 7.6 fL (7.4-10.4); Platelet Count 180 thou/uL (130-400); RBC Distribution Width 13.1 % (11.5-14.5); Red Blood Cell (RBC) Count 3.99 mill/uL (4.70-6.10); White Blood Cell (WBC) Count 5.2 thou/uL (4.8-10.8)
[2018-02-06 12:26] LABS: INR-International Normal Ratio 1.1; PTT 26.9 SEC (22.9-36.1); Prothrombin Time 14.1 SEC (12.0-14.7)
[2018-02-06 12:39] LABS: ALT (SGPT) Less than 7 U/L (8-55); AST (SGOT) 9 U/L (5-34); Albumin 3.2 g/dL (3.4-4.8); Alkaline Phosphatase 67 U/L (40-150); Anion Gap 9 mmol/L (10-20); BUN (Urea Nitrogen) 8 mg/dL (8.4-25.7); Bilirubin, Total 0.8 mg/dL (0.2-1.2); Calc. Creatinine Clearance 0 mL/min (70-130); Calcium 7.6 mg/dL (7.8-10.44); Carbon Dioxide 20 mmol/L (23-31); Chloride 112 mmol/L (98-107); Estimated GFR-MDRD Greater than 90; Globulin 2.1 g/dL (2.4-3.5); Glucose 114 mg/dL (80-115); Protein, Total 5.3 g/dL (5.8-8.1); Sodium 138 mmol/L (136-145)
[2018-02-06 12:42] LABS: CKMB 1.5 ng/mL (0-6.6); Troponin I Less than 0.010 ng/mL (< 0.028)
[2018-02-06 13:09] LABS: Acetaminophen Less than 6.0 mcg/mL (10.0-30.0); Alcohol Less than 10 mg/dL (Less than 10); Salicylate Less than 8.0 mg/dL (15.0-30.0)
[2018-02-06 14:01] LABS: Amphetamine Not Detected (NotDetected); Barbiturates Screen Not Detected (NotDetected); Benzodiazepine Screen Not Detected (NotDetected); Cocaine Metabolite Screen Not Detected (NotDetected); Medtox Control Line Valid? VALID (VALID); Medtox Reader # READER 1; Methadone Not Detected (NotDetected); Methamphetamine Not Detected (NotDetected); Opiate Screen Detected (NotDetected); Oxycodone Screen Not Detected (NotDetected); Phencyclidine (PCP) Not Detected (NotDetected); THC/Cannabinoid Screen Not Detected (NotDetected); Tricyclic Screen Not Detected (NotDetected)
== END 2018-02-06 15:22 | disposition home or self-care (01) ==
LOC: ERS 11:37
DX: F11.10 Opioid abuse, uncomplicated (principal); I10 Essential (primary) hypertension; J44.9 Chronic obstructive pulmonary disease, unspecified; F17.210 Nicotine dependence, cigarettes, uncomplicated; Z79.899 Other long term (current) drug therapy
CPT/HCPCS: 36415; 36416; 51701; 80053; 80306; 80307; 82274; 82553; 83605; 84484; 85025; 85610; 85730; 86850; 86900; 86901; 93005; 96360; 96361

== ENCOUNTER 2018-02-23 08:45 | Outpatient (CLI) | payer MEDICARE, MEDICAID | END 2018-02-23 08:46 | disposition home or self-care (01) | LOC: BICULT 08:45 | PROVIDERS: ATTEND Family Medicine | DX: Z13.6 Encounter for screening for cardiovascular disorders (principal) | CPT/HCPCS: 76775 ==

== ENCOUNTER 2018-04-12 09:13 | Outpatient (CLI) | payer MEDICARE, MEDICAID ==
--- NOTE | 2018-04-12 11:14 | RAD ---
PA AND LATERAL CHEST: Date: 04/12/18 HISTORY: Dyspnea. COMPARISON: 01/09/18. FINDINGS: Heart size and mediastinum are within normal limits. Lungs are clear of any infiltrative process. The re are no signs of failure. Postoperative changes of the left shoulder are seen. Changes that would s uggest a chronic right-sided rotator cuff tear are present. IMPRESSION: No active intrathoracic disease. POS: [facility]
== END 2018-04-12 09:14 | disposition home or self-care (01) ==
LOC: RAD 09:13
PROVIDERS: ATTEND Internal Medicine Critical Care Medicine
DX: R06.00 Dyspnea, unspecified (principal)
CPT/HCPCS: 71046

== ENCOUNTER 2018-05-11 13:04 | Inpatient (IN) | payer MEDICARE, MEDICAID ==
[2018-05-11] MEDS ORDERED: Norepinephrine 8 MG/250 ML IVPB SCH (13:45)
--- NOTE | 2018-05-11 14:05 | RAD ---
CHEST 1 VIEW: Date: 05/11/18 HISTORY: Chest pain. COMPARISON: 04/22/18. FINDINGS: Cardiac silhouette is magnified by projection. Pulmonary vasculature upper limits of normal. Mediasti num is midline. Tip of a right internal jugular central venous catheter overlies the right atrium. N o evidence of pneumothorax. radiation monitor leads overlie the chest. IMPRESSION: 1. Right internal jugular central venous catheter is in good radiographic position. 2. No active cardiopulmonary abnormalities are demonstrated. POS: [facility]
[2018-05-11 14:09] LABS: #Basophils 0.1 thou/uL (0.0-0.2); #Eosinphils 0.2 thou/uL (0.0-0.7); #Lymphocytes 1.6 thou/uL (1.20-3.40); #Monocytes 0.5 thou/uL (0.11-0.59); #Neutrophils 3.4 thou/uL (1.40-6.50); %Eosinophils 2.7 % (0.0-10.0); %Lymphocytes 28.3 % (21.0-51.0); %Monocytes 8.6 % (0.0-10.0); %Neutrophils 59.5 % (42.0-75.0); Hemoglobin 11.7 g/dL (14.0-18.0); Mean Corpuscular HGB CONC 34.1 g/dL (32.0-36.0); Mean Corpuscular Hemoglobin 32.8 pg (27.0-31.0); Mean Platelet Volume 7.3 fL (7.4-10.4); Platelet Count 238 thou/uL (130-400); RBC Distribution Width 12.3 % (11.5-14.5); Red Blood Cell (RBC) Count 3.58 mill/uL (4.70-6.10); White Blood Cell (WBC) Count 5.7 thou/uL (4.8-10.8)
[2018-05-11] MEDS ORDERED: Ondansetron PF 4 MG/2 ML Vial ONE (14:15)
[2018-05-11 14:28] LABS: ALT (SGPT) 7 U/L (8-55); AST (SGOT) 11 U/L (5-34); Albumin 3.3 g/dL (3.4-4.8); Alkaline Phosphatase 63 U/L (40-150); Anion Gap 9 mmol/L (10-20); BUN (Urea Nitrogen) 12 mg/dL (8.4-25.7); Bilirubin, Total 0.6 mg/dL (0.2-1.2); Calc. Creatinine Clearance 0 mL/min (70-130); Calcium 7.7 mg/dL (7.8-10.44); Carbon Dioxide 22 mmol/L (23-31); Chloride 109 mmol/L (98-107); Estimated GFR-MDRD Greater than 90; Globulin 2.4 g/dL (2.4-3.5); Glucose 126 mg/dL (80-115); Potassium 3.3 mmol/L (3.5-5.1); Protein, Total 5.7 g/dL (5.8-8.1); Sodium 137 mmol/L (136-145)
[2018-05-11 14:33] LABS: CKMB 2.1 ng/mL (0-6.6); Troponin I Less than 0.010 ng/mL (< 0.028)
[2018-05-11] MEDS ORDERED: cefTRIAXone\\ROCEPHIN 2 GM VIAL ONE (14:37)
[2018-05-11 14:46] LABS: Bilirubin Negative (Negative); Blood, Urine Negative (Negative); Clarity CLEAR (Clear); Glucose, Urine (Dipstick) Negative (Negative); Leukocyte Negative (Negative); Nitrite Negative (Negative); Protein, Urine (Dipstick) 30 mg/dL (Neg-Trace); Specific Gravity, Urine 1.012 (1.002-1.036)
[2018-05-11 14:49] LABS: Bacteria/HPF None Seen HPF (None Seen); Hyaline Casts/LPF 4-6 HYALINE CAST LPF (0-3 Hyaline); Pathc Cast-AUWi Flag 0.72 (0-2.49); RBC/HPF 0-3 HPF (0-3); Squamous Epithelial 0-3 HPF (0-3); WBC/HPF 0-3 HPF (0-3)
--- NOTE | 2018-05-11 15:19 | CT ---
NONCONTRAST CT HEAD: Date: 05/11/18 HISTORY: Hypotension, weakness, and diaphoresis. COMPARISON: 01/09/18. FINDINGS: Again noted are chronic small vessel ischemic changes. There is no evidence of an acute cortical infa rction, hemorrhage, mass effect, or midline shift. Ventricular system is normal in size, shape, and p osition. There is opacification of left ethmoidal air cell. Remainder of the visualized paranasal sin uses and mastoid air cells are clear. Calvarial structures are intact. IMPRESSION: 1. No acute intracranial abnormality is demonstrated. 2. Chronic small vessel ischemic changes, not significantly progressed from prior exam. POS: [facility]
[2018-05-11] MEDS ORDERED: Acetaminophen 325 MG TAB PO PRN (16:15)
[2018-05-11] MEDS ORDERED: CCU Electrolyte Replacement 1 EACH FS ONE (16:21)
[2018-05-11] MEDS ORDERED: Magnesium Oxide 400 MG TAB PO PRN ×2 (16:22)
[2018-05-11] MEDS ORDERED: Potassium Phosphate 12 MMOL in Sodium Chloride 0.9% 250 ML 250 ML IV PRN (16:22)
[2018-05-11] MEDS ORDERED: CCU ELECTROLYTE REPLACEMENT PROTOCOL FS PRN (16:22)
[2018-05-11] MEDS ORDERED: Potassium Phosphate 15 MMOL in Sodium Chloride 0.9% 250 ML 250 ML IV PRN (16:22)
[2018-05-11] MEDS ORDERED: Potassium Chloride 20 MEQ TAB PO PRN (16:22)
[2018-05-11] MEDS ORDERED: Potassium Chloride 40 MEQ in Sodium Chloride 0.9% 250 ML 250 ML IVPB PRN (16:22)
[2018-05-11] MEDS ORDERED: Potassium Chloride 40 MEQ in Premix Bag 1 BAG IVPB PRN (16:22)
[2018-05-11] MEDS ORDERED: Potassium Phosphate 9 MMOL in Sodium Chloride 0.9% 100 ML IVPB PRN (16:22)
[2018-05-11] MEDS ORDERED: Magnesium 2 GM/NS 0.9% 100 ML 2 GM in Premix Bag 1 BAG IVPB PRN (16:22)
[2018-05-11] MEDS ORDERED: Potassium Chloride 20 MEQ TAB PO SCH (16:30)
[2018-05-11] MEDS: Sodium Chloride 0.9% 1,000 ML IV SCH (16:50)
[2018-05-11 17:28] VITALS: BMI 28.1
[2018-05-11 17:35] LABS: CKMB 2.7 ng/mL (0-6.6); Troponin I 0.014 ng/mL (< 0.028)
[2018-05-11] MEDS: Hydrocortisone Sod Succ/PF 100 mg/2 ml Vial IVP SCH (18:02)
[2018-05-11] MEDS: Famotidine/PF 20 mg/2ml Vial SLOW IVP SCH (20:45)
[2018-05-11] MEDS: Piperacillin/Tazobactam 3.375 GM in Sodium Chloride 0.9% 100 ML IVPB SCH (20:45)
[2018-05-11] MEDS: Tamsulosin HCl 0.4 MG CAP PO SCH (20:45)
--- NOTE | 2018-05-11 21:04 | HP ---
CHIEF COMPLAINT: Hypotension. HISTORY OF PRESENT ILLNESS: The patient is a very pleasant 67-year-old male with a medical history o f rheumatoid arthritis, who is on hydroxychloroquine and new medication Xeljanz and a history of hype rtension who presented to the hospital with hypotension. Patient stated that he woke up this morning , he was feeling well. He went to [facility], got his medication, came back home, was sitting on the bed. He had his friend at the bedside and told the friend that he was not feeling well. At that time he k ind of went back, fell back in the bed and stated that he felt very dizzy. He did not have any synco pal episode. The patient's friend who was at the bedside is a health care provider, so she told him that she will check his blood pressure. Upon checking his blood pressure, his initial reading was 54 /42. His second reading was even lower. At this time, she called in the EMS. Patient was very diap horetic. He denied any chest pain or chest tightness or any palpitations. Patient denied any recent prednisone use. He denies any upper respiratory tract infection. He denies any diarrhea or abdomin al pain. The patient denies any recent sick contacts. Patient was well prior to this admission. PAST MEDICAL HISTORY: Patient has a history of hypertension. He has a history of rheumatoid arthrit is and a history of BPH. PAST SURGICAL HISTORY: He has had esophageal surgery for a twisted esophagus, bilateral elbow surger ies, bilateral wrist surgery, bilateral knee surgery and left shoulder surgery. SOCIAL HISTORY: The patient smokes about half a pack a day of cigarettes. No alcohol or drug use. ALLERGIES: He has got no known drug allergies. MEDICATIONS: Tamsulosin 0.4 mg daily, hydrochlorothiazide and lisinopril 20/12.5 one p.o. b.i.d., Xe ljanz 11 mg daily, which was started 2 days ago, hydroxychloroquine 200 mg b.i.d. and apparently it i s methotrexate because he takes about 6 tablets orally once a week. FAMILY HISTORY: Patient reports that both his parents are . He does not know of any medical iss ues. REVIEW OF SYSTEMS: All negative except for the ones mentioned above in the HPI. PHYSICAL EXAMINATION: VITAL SIGNS: He was afebrile 98.8. His blood pressure in the ER was 110/60, heart rate of 102. He is 96% on room air. Does not appear tachypneic. GENERAL: He is awake, alert, oriented x3. CARDIOVASCULAR: S1, S2 present. No murmurs, rubs or gallops. LUNGS: Clear to auscultation, rhonchi or wheezes noted. ABDOMEN: He does have a mid abdominal scar. Bowel sounds are present x2. No pain upon palpation of his abdomen. EXTREMITIES: No edema. Pedal pulses are present bilaterally. Neurovascular segura, he has got no fo fadi deficits. SKIN: No cuts, lesions, or bruises noted. LABORATORY DATA: Are as of the following; WBC is 5.7, hemoglobin of 11.7, hematocrit of 34.4, platel ets of 238. Chemistry: Sodium of 137, potassium of 3.3, BUN of 12, creatinine 0.84. His AST of 11, ALT of 7. His sugar is 126, his creatinine 0.84. His random cortisol level was checked was 22. Hi s urine appeared to be relatively normal. IMAGING DATA: He had also had a chest x-ray which did not show any acute abnormalities. He also had a brain CT, which was also normal. ASSESSMENT AND PLAN: The patient is a very pleasant 67-year-old male who presents to the hospital wi th hypotension. 1. Septic shock. I am not sure this is secondary to infectious process versus cardiogenic versus hy povolemic shock due to dehydration. I did do a bedside echo, this was done by the ER physician. No tamponade was noted. The patient has not been on currently any steroids. No infection process is no adriana in his lab work. He did have an echocardiogram in 12/2017 which appeared to be EF showing EF of 50%-55% with just some mild mitral regurgitation and mild tricuspid regurgitation. Otherwise, it was okay, just had some diastolic dysfunction. Patient also had a stress test in 12/2017 which indicate d it was normal exam. I will cover him with broad spectrum antibiotics for now. He does see Dr. Austin hummel, Pulmonology for his COPD. He does smoke half a pack. He did have a CT lung on 02/2018, this was for a screening which was negative. He was resuscitated with 2 liters of normal saline. I did give him an additional liter. The patient states that he has not been eating or drinking pretty well and no signs of dehydration according to him. Unable to visualize IVC to check for volume status in this patient. I am not sure if his new medication Xeljanz has something to do with it since he started t his about 2 days ago. However, I did look up the side effects and hypertension was not one of the si de effects of this medication. The patient does take blood pressure medications, but he told me his medication dose has not been much adjusted recently, so unclear why he is having low blood pressure. I will check his TSH. I will also check a cortisol level in the morning and I will cover him with b road spectrum antibiotics. He is on Levophed. I have talked with the Pulmonary Critical Care oncall person and will be admitting him to the CCU. 2. Rheumatoid arthritis. We will hold off on his medications for today until patient is a little bi t stable and then we will restart his medications. 3. Benign prostatic hypertrophy. We will continue his tamsulosin, which actually also can cause low blood pressure. 4. Hypokalemia. We will replace his potassium. Also we will check another H&H later on today. The patient denies any dark stools or taking any NSAIDs. We will just check an H&H at 10:00 tonight to make sure that his hemoglobin does not drop and that is the cause of his hypotension. 5. Deep venous thrombosis prophylaxis. We will put the patient on sequential compression devices.
[2018-05-11 22:36] LABS: Troponin I 0.038 ng/mL (< 0.028)
[2018-05-11 22:39] LABS: CKMB 10.9 ng/mL (0-6.6)
[2018-05-12] MEDS: Hydrocortisone Sod Succ/PF 100 mg/2 ml Vial IVP SCH ×4 (00:28→17:03)
[2018-05-12] MEDS: Piperacillin/Tazobactam 3.375 GM in Sodium Chloride 0.9% 100 ML IVPB SCH ×4 (01:46→20:22)
--- NOTE | 2018-05-12 02:36 | CON ---
DATE OF CONSULTATION: 05/11/2018 HISTORY OF PRESENT ILLNESS: A 67-year-old -[place] gentleman who has seen Dr. Juan in the p ast, presented with hypotension, systolic blood pressure was 55/33. He denied any chest pain, shortn ess of breath, nausea or vomiting. Apparently, blood pressure was noted by home health people. EMS was called in. In the ER, he received volume resuscitation. His blood pressure was 88/57 in the ER. He is admitted to the hospital. He was here not long ago where Dr. Juan saw him for a similar reaso n. it was felt could be due to his antihypertensive medication. He recently has gone to [place] to see a experimental physicist. His medication had been accordingly adjuste d. SOCIAL HISTORY: He smokes maybe 6 cigarettes a day, denies pneumonia, TB, asthma. Does have some di fficulty breathing. PAST MEDICAL HISTORY: Hypertension, COPD, rheumatoid arthritis. PAST SURGICAL HISTORY: Elbow, knee surgery, wrist surgery, shoulder surgery, surgery of the esophagu s. ALCOHOL: None. DRUGS: None. CHRONIC MEDICATION: Includes list of bottles, Flomax, hydroxyzine, lisinopril/hydrochlorothiazide 20 /12.5, [place], Celebrex, hydrocodone, methotrexate once a week 7 tablets. Additionally, he was starte d on new medicine for his rheumatoid arthritis Xeljanz 5 mg once a day. ALLERGIES: None. SOCIAL AND FAMILY HISTORY: Unremarkable . PHYSICAL EXAMINATION: VITAL SIGNS: Blood pressure 110/70 on Levophed, pulse 102, temperature 98, sats 90%, respiration 19. CHEST: Reveals no wheezing or crackles. CARDIAC: Normal S1, S2. No gallops. ABDOMEN: Soft, no masses. LABORATORY DATA: White count 5,000, hemoglobin and hematocrit 11 and 34, platelet count 238. Electr olytes are normal. Renal function is normal. Albumin is normal. ASSESSMENT: 1. Hypotension, etiology unclear, rule out sepsis. Chest x-ray is clear, no acute infiltrate was se en. 2. Rheumatoid arthritis. 3. Hypertension. 4. Tobacco abuse. 5. Chronic obstructive pulmonary disease. PLAN: A cortisol level is being ordered. He may very well have relative adrenal insufficiency. Started empirically on hydrocortisone. Continue antibiotics and then we get cultures back, deescalat e thereafter. This is a consultation note in the ICU. Forty-five minutes critical care time in which all time spen t at the bedside.
[2018-05-12] MEDS ORDERED: Vancomycin HCl 1.5 GM in Sodium Chloride 0.9% 250 ML 300 ML IVPB SCH (03:00)
[2018-05-12 05:30] LABS: #Lymphocytes 0.9 thou/uL (1.20-3.40); #Monocytes 0.4 thou/uL (0.11-0.59); #Neutrophils 4.6 thou/uL (1.40-6.50); %Basophils 0.2 % (0.0-1.0); %Eosinophils 0.2 % (0.0-10.0); %Lymphocytes 15.4 % (21.0-51.0); %Monocytes 7.3 % (0.0-10.0); %Neutrophils 76.9 % (42.0-75.0); Hemoglobin 11.7 g/dL (14.0-18.0); Mean Corpuscular HGB CONC 34.1 g/dL (32.0-36.0); Mean Corpuscular Hemoglobin 32.3 pg (27.0-31.0); Mean Corpuscular Volume 94.8 fL (78.0-98.0); Mean Platelet Volume 7.5 fL (7.4-10.4); Platelet Count 223 thou/uL (130-400); RBC Distribution Width 12.3 % (11.5-14.5); Red Blood Cell (RBC) Count 3.62 mill/uL (4.70-6.10)
[2018-05-12] MEDS: Sodium Chloride 0.9% 1,000 ML IV SCH (05:35)
[2018-05-12 05:38] LABS: Anion Gap 6 mmol/L (10-20); BUN (Urea Nitrogen) 7 mg/dL (8.4-25.7); Calc. Creatinine Clearance 106 mL/min (70-130); Calcium 8.2 mg/dL (7.8-10.44); Carbon Dioxide 24 mmol/L (23-31); Chloride 113 mmol/L (98-107); Estimated GFR-MDRD Greater than 90; Glucose 114 mg/dL (80-115); Potassium 3.3 mmol/L (3.5-5.1); Sodium 140 mmol/L (136-145)
[2018-05-12] MEDS ORDERED: Methotrexate Sodium 2.5 MG TAB PO SCH ×2 (09:00→10:15)
[2018-05-12] MEDS: Famotidine/PF 20 mg/2ml Vial SLOW IVP SCH ×2 (09:09→20:23)
[2018-05-12] MEDS: Folic Acid 1 MG TAB PO SCH (09:10)
--- NOTE | 2018-05-12 09:33 | PRG ---
DATE OF SERVICE: 05/12/2018 SUBJECTIVE: This morning, awake, alert, responsive, less pain, less shortness of breath. OBJECTIVE: VITAL SIGNS: Blood pressure is improved 117/76, sats are 98%, respirations 14, pulse is 93. GENERAL: He is awake. Denies any pain or discomfort. CHEST: No crackles, rubs, or wheezing. CARDIAC: Normal S1 and S2. No gallops. ABDOMEN: Soft. No masses. LABORATORY DATA: His CK is elevated. Troponin is elevated at 0.038. His chemistry profile is jamel l. Potassium is 3.3. White count 6000, H and H 11 and 34, platelet count normal. His cortisol leve l was markedly low at 8.5. IMPRESSION: 1. Hypertension, combination of medication versus relative adrenal insufficiency. 2. Rheumatoid arthritis. 3. History of hypertension. PLAN: From the pulmonary standpoint of view, he is stable enough to be transferred out of the ICU. Continue stress dose of steroids. We will follow.
--- NOTE | 2018-05-12 11:05 | PDOC.PN ---
- Subjective Encounter Start Date: 05/12/18 Encounter Start Time: 11:15 Subjective: pt up in bed no complains - Objective Resuscitation Status: Resuscitation Status FULL:Full Resuscitation Vital Signs & Weight: Vital Signs (12 hours) Temp Pulse Ox 05/12/18 08:00 98.5 F 99 05/12/18 07:24 96 05/12/18 04:00 98.4 F 05/11/18 23:47 98.2 F Weight Admit Weight 179 lb 10.828 oz Weight 179 lb 7.3 oz Most Recent Monitor Data Heart Rate from ECG 95 NIBP 115/77 NIBP BP-Mean 89 Respiration from ECG 23 SpO2 99 I&O: 05/11/18 05/12/18 05/13/18 06:59 06:59 06:59 Intake Total 1705.4 742 Output Total 1150 0 Balance 555.4 742 Result Diagrams: 05/12/18 05:00 05/12/18 05:00 Phys Exam - Physical Examination Respiratory: no wheezing, no rales, no rhonchi, wheezing present, clear to auscultation bilateral Cardiovascular: RRR, no significant murmur, no rub, gallop, irregular Gastrointestinal: soft, non-tender, no distention, positive bowel sounds Musculoskeletal: no edema, pulses present, edema present Dx/Plan (1) Shock Code(s): R57.9 - SHOCK, UNSPECIFIED Status: Resolved (2) Rheumatoid arthritis Code(s): M06.9 - RHEUMATOID ARTHRITIS, UNSPECIFIED Status: Acute (3) Hypertension Code(s): I10 - ESSENTIAL (PRIMARY) HYPERTENSION Status: Chronic - Plan will stop vanco for now -: pt on cortisol iv, his cortisol level was low normal * . Review of Systems - Review of Systems Respiratory: negative: Cough, Dry, Shortness of Breath, Hemoptysis, SOB with Excertion, Pleuritic Pain, Sputum, Wheezing Cardiovascular: negative: chest pain, palpitations, orthopnea, paroxysmal nocturnal dyspnea, edema, light headedness, other Gastrointestinal: negative: Nausea, Vomiting, Abdominal Pain, Diarrhea, Constipation, Melena, Hematochezia, Other - Medications/Allergies Allergies/Adverse Reactions: Allergies Allergy/AdvReac Type Severity Reaction Status Date / Time No Known Allergies Allergy Verified 05/20/15 09:46 Medications: Current Medications Acetaminophen (Tylenol) 650 mg PO Q4H PRN PRN Reason: Headache/Fever/Mild Pain (1-3) Famotidine (Pepcid) 20 mg SLOW IVP Q12HR [facility] Last Admin: 05/12/18 09:09 Dose: 20 mg Folic Acid (Folvite) 1 mg PO DAILY [facility] Last Admin: 05/12/18 09:10 Dose: 1 mg Hydrocortisone Sodium Succinate (Solu-Cortef) 50 mg IVP Q6HR [facility] Last Admin: 05/12/18 05:36 Dose: 50 mg Norepinephrine Bitartrate (Levophed) 250 mls @ 0 mls/hr IVPB INF FRENCH; Protocol Sodium Chloride (Normal Saline 0.9%) 1,000 mls @ 75 mls/hr IV .[id number] [facility] Last Admin: 05/12/18 05:35 Dose: 1,000 mls Piperacillin Sod/Tazobactam (Sod 3.375 gm/ Sodium Chloride) 100 mls @ 200 mls/ hr IVPB 0200,0800,1400,2000 [facility] Last Admin: 05/12/18 09:09 Dose: 100 mls Vancomycin HCl 1.5 gm/ Sodium (Chloride) 300 mls @ 200 mls/hr IVPB 0300,1500 [facility] Last Admin: 05/12/18 03:37 Dose: 300 mls Potassium Chloride 40 meq/ (Sodium Chloride) 270 mls @ 135 mls/hr IVPB ASDIR PRN PRN Reason: FOR SERUM K+ 2.5 - 3.5 Potassium Chloride 40 meq/ (Device) 100 mls @ 50 mls/hr IVPB ASDIR PRN PRN Reason: FOR SERUM K+ 2.5 - 3.5 Magnesium Sulfate 1 gm/ Sodium (Chloride) 102 mls @ 102 mls/hr IV PRN PRN PRN Reason: MAG LEVEL 1.4 - 2.0 Magnesium Sulfate 2 gm/ Device 100 mls @ 100 mls/hr IVPB ASDIR PRN PRN Reason: MAGNESIUM < 1.4 Potassium Phosphate 9 mmol/ (Sodium Chloride) 103 mls @ 25.75 mls/hr IVPB ASDIR PRN PRN Reason: Phosphate 1.0-1.8 Potassium Phosphate 12 mmol/ (Sodium Chloride) 254 mls @ 63.5 mls/hr IV ASDIR PRN PRN Reason: Serum phosphate 0.5-0.9 Potassium Phosphate 15 mmol/ (Sodium Chloride) 255 mls @ 63.75 mls/hr IV ASDIR PRN PRN Reason: Serum Phos < 0.5 Magnesium Oxide (Magnesium Oxide) 400 mg PO BIDPRN PRN PRN Reason: FOR SERUM MAG 1.4 - 2.0 Magnesium Oxide (Magnesium Oxide) 800 mg PO PRN PRN PRN Reason: FOR SERUM MAG < 1.4 Methotrexate Sodium (Methotrexate Sodium) 20 mg PO NOW [facility] Stop: 05/12/18 12:15 Last Admin: 05/12/18 10:14 Dose: 20 mg Miscellaneous Medication (Pharmacy To Dose) 1 each IVPB PRN PRN PRN Reason: Pharmacy to dose Miscellaneous Medication (Phos-Nak) 1 pkt PO TIDPRN PRN PRN Reason: FOR PHOS LEVEL 1.0 - 1.8 Miscellaneous Medication (Phos-Nak) 2 pkt PO TIDPRN PRN PRN Reason: FOR PHOS LEVEL 0.5 - 1.0 Ccu Electrolyte (Replacement Protocol) 0 each FS PRN PRN PRN Reason: FOR ELECTROLYTE REPLACEMENT Potassium Chloride (K-Dur) 40 meq PO ASDIR PRN PRN Reason: FOR SERUM K+ 2.5 - 3.5 Last Admin: 05/12/18 05:46 Dose: 40 meq Potassium Chloride (Klor-Con) 40 meq PER TUBE ASDIR PRN PRN Reason: FOR SERUM K+ 2.5-3.5 Sodium Chloride (Flush - Normal Saline) 10 ml IVF Q12HR [facility] Last Admin: 05/12/18 09:14 Dose: 10 ml Sodium Chloride (Flush - Normal Saline) 10 ml IVF PRN PRN PRN Reason: Saline Flush Tamsulosin HCl (Flomax) 0.4 mg PO HS [facility] Last Admin: 05/11/18 20:45 Dose: 0.4 mg
[2018-05-12] MEDS: Hydroxychloroquine Sulfate 200 MG TAB PO SCH ×2 (12:15→20:23)
[2018-05-12] MEDS: XELJANZ XR PO SCH (15:02)
[2018-05-12] MEDS: Tamsulosin HCl 0.4 MG CAP PO SCH (20:23)
[2018-05-13] MEDS: Hydrocortisone Sod Succ/PF 100 mg/2 ml Vial IVP SCH ×2 (00:58→05:07)
[2018-05-13] MEDS: Piperacillin/Tazobactam 3.375 GM in Sodium Chloride 0.9% 100 ML IVPB SCH ×2 (00:58→07:54)
[2018-05-13 02:37] LABS: Vancomycin, Trough 5.3 ug/mL
[2018-05-13] MEDS: Folic Acid 1 MG TAB PO SCH (07:54)
[2018-05-13] MEDS: Hydroxychloroquine Sulfate 200 MG TAB PO SCH ×2 (07:54→20:50)
[2018-05-13] MEDS: Famotidine/PF 20 mg/2ml Vial SLOW IVP SCH ×2 (07:54→20:52)
[2018-05-13] MEDS: XELJANZ XR PO SCH (07:55)
--- NOTE | 2018-05-13 08:34 | EKG ---
Test Reason : Blood Pressure : / mmHG Vent. Rate : 078 BPM Atrial Rate : 078 BPM P-R Int : 220 ms QRS Dur : 082 ms QT Int : 434 ms P-R-T Axes : 058 013 -01 degrees QTc Int : 494 ms Sinus rhythm with 1st degree A-V block /Baseline artifact Possible Inferior infarct , age undetermined Abnormal ECG Confirmed by LANA GILBERT ([id number]) on 05/13/2018 8:34:08 AM Referred By: Confirmed By:LANA GILBERT
[2018-05-13] MEDS ORDERED: Hydrocortisone 10 mg Tablet PO SCH (09:00)
[2018-05-13] MEDS ORDERED: (Tofacitinib Citrate [Xeljanz Xr] 11 MG) PO SCH (09:00)
--- NOTE | 2018-05-13 11:48 | PRG ---
DATE OF SERVICE: 05/13/2018 SUBJECTIVE: Teresa is much more awake, responsive, no longer hypotensive. OBJECTIVE: VITALS: Blood pressure is 146/92, sats are 98% on room air. Temperature 98.7, pulse 81. CHEST: No wheezing or crackles. CARDIAC: Normal S1, S2, no gallops. IMPRESSION: 1. Hypertension, combination medication and probably relative adrenal deficiency. 2. No evidence of any sepsis. PLAN: The patient can be discharged home at any time. Follow up with primary care physician.
[2018-05-13] MEDS ORDERED: Lisinopril 20 MG TAB PO SCH (12:45)
--- NOTE | 2018-05-13 14:37 | RAD ---
LEFT ELBOW 4 VIEWS: HISTORY: Pain. COMPARISON: None. FINDINGS: No joint effusion. No fracture. No cortical irregularity. No periosteal reaction. There do appear to be degenerative changes involving the left elbow joint. IMPRESSION: Degenerative change. No fracture. POS: [facility]
[2018-05-13] MEDS: Tamsulosin HCl 0.4 MG CAP PO SCH (20:50)
[2018-05-13] MEDS: Lisinopril 20 MG TAB PO SCH (20:50)
[2018-05-14 06:54] VITALS: BP 140/90; TEMP 98.2
[2018-05-14] MEDS: Hydroxychloroquine Sulfate 200 MG TAB PO SCH (08:15)
[2018-05-14] MEDS: Folic Acid 1 MG TAB PO SCH (08:15)
[2018-05-14] MEDS: Famotidine/PF 20 mg/2ml Vial SLOW IVP SCH (08:15)
[2018-05-14] MEDS: Lisinopril 20 MG TAB PO SCH (08:15)
[2018-05-14] MEDS: XELJANZ XR PO SCH (08:19)
--- NOTE | 2018-05-14 19:45 | DIS ---
DATE OF ADMISSION: 05/11/2018 DATE OF DISCHARGE: 05/14/2018 DISCHARGE DIAGNOSES: 1. Initially was septic shock. 2. Hypertension. 3. History of rheumatoid arthritis. 4. Hypertension. 5. Benign prostatic hypertrophy. HOSPITAL COURSE: The patient is a very pleasant 67-year-old male who initially presented to the hosp ital with septic shock. The patient was hypotensive. At that time, we did do an echocardiogram and also ruled him out for sepsis infection processes. His cultures were negative. His urine was normal . He had no upper respiratory tract infection. His chest x-ray was normal. His hypertension was in itially thought to be secondary to either low cortisol versus medication related. Patient was put on Levophed and was in ICU for about 12 hours and then was off Levophed and transferred to the regular floor. Patient initially was put on hydrocortisone; however, after reviewing his medication, the pat iegiuliano was taking lisinopril with hydrochlorothiazide twice a day and in the morning he was also taking Flomax. This is not new, however, patient that he took it on an empty stomach and then ate his meal s. I am not sure if patient was not maybe drinking enough fluid. The patient states that he has bee n adequately drinking fluids and eating food. I recommended the patient to take the Flomax at night and cut down his hydrochlorothiazide and just prescribed him lisinopril twice a day. The patient was kept on his lisinopril and off the hydrocortisone 24 hours, and he did significantly well without an y problems. According to the patient, this has never happened to him before. His echocardiogram ind icated an EF of 65%-70%, mild elevated right ventricular pressure. Otherwise, it was essentially nor mal. PHYSICAL EXAMINATION: VITAL SIGNS: 98.2, 78, 16, 96% room air, 140/90. GENERAL: He is awake, alert, oriented x3, does not appear in distress. CARDIOVASCULAR: S1, S2 present. No murmurs, rubs or gallops. ABDOMEN: Soft, nontender. Bowel sounds are present x2. EXTREMITIES: No edema. Pedal pulses are present x2. I have ordered Home Health for him. He was asked to check his blood pressure daily. Also, he has a follow up with Cardiology on the of this month and also his PCP in the next week. I did not pre scribe any cortisone for this patient since his cortisol level in the housing and residence life director has been around 8 50, which is within the normal range and I would like him to follow up with his primary care doctor briseida lopez I commit him to be on any kind of cortisol. He will continue taking his rheumatoid arthritis m edication and that is about it, and his home medications will be as of the following, is going to be on folic acid 1 mg p.o. daily, lisinopril 20 mg b.i.d., tamsulosin 1 p.o. daily at night, Plaquenil 1 b.i.d. mg p.o. daily, [place] 1 tab q.8 h. and methotrexate 8 tablets every 7 days.
== END 2018-05-14 13:58 | disposition home or self-care (01) | DRG 871 ==
LOC: ERS 13:04 → CCU 15:14 → T4-A 05-12 16:03
PROVIDERS: ADMIT Internal Medicine; ATTEND Internal Medicine
DX: A41.9 Sepsis, unspecified organism (principal); R65.21 Severe sepsis with septic shock; I95.9 Hypotension, unspecified; M06.9 Rheumatoid arthritis, unspecified; I10 Essential (primary) hypertension; N40.0 Benign prostatic hyperplasia without lower urinary tract symptoms; F17.210 Nicotine dependence, cigarettes, uncomplicated; J44.9 Chronic obstructive pulmonary disease, unspecified; E87.6 Hypokalemia
CPT/HCPCS: 36415; 36556; 70450; 71045; 80048; 80053; 80202; 81003; 81015; 82533; 82553; 83605; 83880; 84443; 84484; 85025; 87040; 90471; 90662; 93005; 93306; 94760; 96360; 96365; 96366; 96368; 96375; 99214; G0008; G0463; J0696; J1720; J2405; J2543; J3370; J7050; J8610; S0028

== ENCOUNTER 2018-12-03 09:44 | Outpatient (CLI) | payer MEDICARE, MEDICAID ==
--- NOTE | 2018-12-03 11:15 | RAD ---
RIGHT SHOULDER THREE VIEWS: INDICATIONS: Right shoulder pain for many years. COMPARISON: None. FINDINGS: There is cephalad migration of the humeral head with acetabulization of the inferior aspect of the ac romion. There is moderate AC joint and moderate to severe glenohumeral joint osteoarthrosis. The vi sualized right lung is clear. No acute fracture is evident. IMPRESSION: 1. Findings of rotator cuff osteoarthropathy involving the right shoulder. 2. Moderate acromioclavicular joint osteoarthrosis. POS: [facility]
== END 2018-12-03 09:45 | disposition home or self-care (01) ==
LOC: BICRAD 09:44
PROVIDERS: ATTEND Family Medicine
DX: M25.511 Pain in right shoulder (principal); M19.011 Primary osteoarthritis, right shoulder

== ENCOUNTER 2019-02-25 10:07 | Outpatient (CLI) | payer MEDICARE, MEDICAID ==
--- NOTE | 2019-02-25 11:56 | RAD ---
4 VIEWS LEFT ELBOW: Date; 02/25/19 COMPARISON: 05/13/18. HISTORY: Left elbow pain. FINDINGS: 4 views of the left elbow show no evidence of acute fracture or dislocation. Moderate degenerative ch anges are seen in the elbow joint. No elbow effusion is seen. Moderate diffuse soft tissue swelling i s seen. IMPRESSION: Moderate degenerative changes of the left elbow without acute osseous abnormality. POS: [facility]
== END 2019-02-25 10:08 | disposition home or self-care (01) ==
LOC: BICRAD 10:07
PROVIDERS: ATTEND Physician Assistant
DX: M25.522 Pain in left elbow (principal); M19.022 Primary osteoarthritis, left elbow

== ENCOUNTER 2019-03-06 08:37 | Outpatient (CLI) | payer MEDICARE, MEDICAID ==
--- NOTE | 2019-03-06 09:47 | RAD ---
CHEST 2 VIEWS: HISTORY: Dyspnea. COMPARISON: Radiograph 05/11/2018. FINDINGS: There is a left shoulder reverse arthroplasty. A normal variant articulation of the right coracoid i n the clavicle near the coracoclavicular ligaments. Lungs are clear. No pneumothorax. No effusion. No airspace consolidation. IMPRESSION: No acute thoracic abnormality. POS: [facility]
== END 2019-03-06 08:38 | disposition home or self-care (01) ==
LOC: RAD 08:37
PROVIDERS: ATTEND Internal Medicine Critical Care Medicine
DX: R06.00 Dyspnea, unspecified (principal)
CPT/HCPCS: 71046

== ENCOUNTER 2019-06-19 11:16 | Emergency (ER) | payer MEDICARE, MEDICAID ==
--- NOTE | 2019-06-19 12:28 | ULT ---
LEFT LOWER EXTREMITY DOPPLER VENOUS ULTRASOUND: INDICATION: Left lower extremity edema. TECHNIQUE: Murphy scale, color Doppler, and vascular duplex with spectral analysis was performed of the deep venou s structures of both lower extremities. The common femoral vein, superficial femoral vein, popliteal vein, posterior tibial vein, proximal greater saphenous, and proximal profunda veins were assessed bi laterally. FINDINGS: There is normal compression, flow, and augmentation seen within the deep venous structures of the lef t lower extremity. IMPRESSION: No evidence of deep vein thrombosis within the left lower extremity. POS: [facility]
== END 2019-06-19 12:58 | disposition home or self-care (01) ==
LOC: ERS 11:16
DX: R60.0 Localized edema (principal); I10 Essential (primary) hypertension; J44.9 Chronic obstructive pulmonary disease, unspecified; F17.210 Nicotine dependence, cigarettes, uncomplicated; Z79.899 Other long term (current) drug therapy

== ENCOUNTER 2019-09-09 09:54 | Emergency (ER) | payer MEDICARE, OTHER ==
[2019-09-09 10:42] LABS: #Lymphocytes 1.2 thou/uL (1.20-3.40); #Monocytes 0.6 thou/uL (0.11-0.59); #Neutrophils 4.1 thou/uL (1.40-6.50); %Basophils 0.8 % (0.0-1.0); %Eosinophils 0.4 % (0.0-10.0); %Lymphocytes 19.7 % (21.0-51.0); %Monocytes 10.6 % (0.0-10.0); %Neutrophils 68.4 % (42.0-75.0); Hemoglobin 11.1 g/dL (14.0-18.0); Mean Corpuscular HGB CONC 34.8 g/dL (32.0-36.0); Mean Corpuscular Hemoglobin 32.2 pg (27.0-31.0); Mean Corpuscular Volume 92.4 fL (78.0-98.0); Mean Platelet Volume 8.5 fL (7.4-10.4); Platelet Count 235 thou/uL (130-400); RBC Distribution Width 12.6 % (11.5-14.5); Red Blood Cell (RBC) Count 3.44 mill/uL (4.70-6.10)
--- NOTE | 2019-09-09 11:03 | ULT ---
Right upper extremity venous duplex exam: HISTORY: Right arm pain and swelling. Rotator cuff surgery 4 days ago. COMPARISON: None. FINDINGS: Real-time color Doppler evaluation of the right upper extremity was performed to include th e internal jugular, subclavian, axillary, brachial, basilic and cephalic veins as well as forearm veins. This shows a patent deep venous system with normal compressibility and augmentation. A complex fluid collection is seen in the region of the shoulder, it is incompletely assessed due to bandage material. It measures approximate 6 cm in size. Subcutaneous edema changes are also noted of the arm. IMPRESSION: No evidence of DVT of the right upper extremity.
[2019-09-09 11:23] LABS: ALT (SGPT) 34 U/L (8-55); AST (SGOT) 58 U/L (5-34); Alkaline Phosphatase 50 U/L (40-110); Anion Gap 14 mmol/L (10-20); BUN (Urea Nitrogen) 11 mg/dL (8.4-25.7); Bilirubin, Total 1.5 mg/dL (0.2-1.2); Calc. Creatinine Clearance 0 mL/min (70-130); Calcium 8.8 mg/dL (7.8-10.44); Carbon Dioxide 23 mmol/L (23-31); Chloride 106 mmol/L (98-107); Estimated GFR-MDRD Greater than 90; Globulin 3.5 g/dL (2.4-3.5); Glucose 91 mg/dL (80-115); Potassium 4.1 mmol/L (3.5-5.1); Protein, Total 6.5 g/dL (5.8-8.1); Sodium 139 mmol/L (136-145)
== END 2019-09-09 11:50 | disposition home or self-care (01) ==
LOC: ERS 09:54
DX: L76.32 Postprocedural hematoma of skin and subcutaneous tissue following other procedure (principal); M06.9 Rheumatoid arthritis, unspecified; J44.9 Chronic obstructive pulmonary disease, unspecified; I10 Essential (primary) hypertension; F17.210 Nicotine dependence, cigarettes, uncomplicated; Z79.899 Other long term (current) drug therapy
CPT/HCPCS: 80053; 85025; 96360

== ENCOUNTER 2019-12-25 09:55 | Inpatient (IN) | payer MEDICARE, MEDICAID, OTHER ==
[2019-12-23 15:45] VITALS: BMI 26.2
[2019-12-25] MEDS ORDERED: Dexamethasone 20 MG/5 ML VIAL ONE (10:37)
[2019-12-25] MEDS ORDERED: PHENYLEPHRINE-NS 100 MCG/ML 10 ML SYRINGE ONE (10:37)
[2019-12-25] MEDS ORDERED: Lidocaine 1% PF 5 ML VIAL ONE (10:37)
[2019-12-25] MEDS ORDERED: PROPOFOL 200 MG/20 ML VIAL ONE (10:37)
[2019-12-25] MEDS ORDERED: Ondansetron PF 4 MG/2 ML Vial ONE (10:37)
[2019-12-25] MEDS ORDERED: EPHEDRINE 25 MG/5 ML SYRINGE ONE (10:37)
[2019-12-25] MEDS ORDERED: Rocuronium Bromide 10 MG/ML (10ML VIAL) ONE (10:37)
[2019-12-25 10:55] LABS: Hemoglobin 12.2 g/dL (14.0-18.0); Mean Corpuscular HGB CONC 32.6 g/dL (32.0-36.0); Mean Corpuscular Hemoglobin 27.9 pg (27.0-31.0); Mean Corpuscular Volume 85.5 fL (78.0-98.0); Mean Platelet Volume 8.2 fL (7.4-10.4); Platelet Count 239 thou/uL (130-400); RBC Distribution Width 14.6 % (11.5-14.5); Red Blood Cell (RBC) Count 4.39 mill/uL (4.70-6.10); White Blood Cell (WBC) Count 5.2 thou/uL (4.8-10.8)
[2019-12-25 11:07] LABS: Anion Gap 13 mmol/L (10-20); BUN (Urea Nitrogen) 7 mg/dL (8.4-25.7); Calc. Creatinine Clearance 98 mL/min (70-130); Calcium 9.3 mg/dL (7.8-10.44); Carbon Dioxide 24 mmol/L (23-31); Chloride 108 mmol/L (98-107); Estimated GFR-MDRD Greater than 90; Glucose 86 mg/dL (80-115); Potassium 3.7 mmol/L (3.5-5.1); Sodium 141 mmol/L (136-145)
[2019-12-25] MEDS ORDERED: Fentanyl 100 MCG/2 ML VIAL ONE ×2 (12:21→15:53)
[2019-12-25] MEDS ORDERED: Midazolam HCl 2 mg/2 ml Vial ONE (12:21)
[2019-12-25] MEDS ORDERED: HYDROmorphone 2 MG/ML VIAL SLOW IVP PRN (15:42)
[2019-12-25] MEDS ORDERED: Ondansetron HCl/PF 4 MG/2 ML Vial IVP PRN (15:42)
[2019-12-25] MEDS ORDERED: Promethazine HCl 25 MG/ML VIAL SLOW IVP PRN (15:42)
[2019-12-25] MEDS ORDERED: PACU-Morphine 4MG/ML VIAL SLOW IVP PRN (15:42)
[2019-12-25] MEDS ORDERED: Promethazine HCl 25 MG/ML VIAL IM PRN (15:42)
[2019-12-25] MEDS ORDERED: HYDROcodone/Acetaminophen 10/325 mg Tablet PO PRN (15:47)
[2019-12-25] MEDS ORDERED: Morphine 2 MG/ML SYRINGE SLOW IVP PRN (15:48)
[2019-12-25] MEDS ORDERED: CEFAZOLIN 2 GM in Premix Bag 1 BAG IVPB SCH (18:00)
[2019-12-25] MEDS: Lactated Ringer's 1,000 ML IV SCH ×2 (18:16→19:55)
[2019-12-25] MEDS ORDERED: Acetaminophen 650 MG Suppository PR PRN (18:30)
[2019-12-25] MEDS: Ketorolac Tromethamine 30 MG/ML VIAL IVP SCH ×2 (18:41→23:00)
[2019-12-25] MEDS: CEFAZOLIN 2 GM in Premix Bag 1 BAG IVPB SCH (19:55)
[2019-12-25] MEDS: Lisinopril 20 MG TAB PO SCH (19:56)
--- NOTE | 2019-12-25 21:20 | RAD ---
RIGHT SHOULDER TWO VIEW: 12/25/19 HISTORY: ORIF. COMPARISON: None. FINDINGS: Satisfactory appearance of the right reversed total shoulder arthroplasty. IMPRESSION: Satisfactory postoperative appearance. POS: HOME
--- NOTE | 2019-12-25 21:58 | OP ---
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 PROCEDURE PERFORMED: Revision of right reverse total shoulder replacement. ANESTHESIA: General. DESCRIPTION OF PROCEDURE: The patient was given preoperative IV antibiotics, taken to the operating room, placed in supine position. Satisfactory general anesthesia was performed. The patient was then placed in a beach chair position. The right shoulder and upper extremity were sterilely prepped and draped in usual fashion. Incision was made through the previous scar in the anterior aspect of the right shoulder from the distal clavicular area down in the deltopectoral region down to the proximal anterior aspect of the arm. The deltoid fibers were scarred to the underlying soft tissue and that was sharply divided. The capsule was then entered, and clear synovial fluid was noted. The patient had an anterior superior dislocation of the right humeral head. Attempts were made at reduction, but the shoulder was significantly too tight with abundant scar tissue indicating that the dislocation had been out for at least several weeks. Scar tissue was removed from around the posterior, anterior, superior, and inferior aspect of the glenoid as well as the proximal aspect of the humerus. Finding the shoulder unable to be relocated, the pectoralis tendon had to be incised. The humeral socket insert was removed. The intramedullary stem was still very tight and good position. The glenoid head was removed and it was noted that the base plate was retroverted and therefore, it had to be removed as well. The glenoid was placed into a much better position with the correct amount of version, which was more in the neutral position and fortunately, the recut was made. The bone was still at good bone stock over the glenoid, and the glenoid base plate was screwed into place and then four 5.0 bone screws were used in the base plate to provide additional stability. All four screws had excellent fixation in the bone. The trials were inserted and the -4 size 36 glenoid head with a semiconstrained humeral socket was able to be reduced and had excellent stability. The trials were removed, and the -4 mm glenoid head was locked into position over the glenoid base plate, and the 36 mm humeral socket insert, which was semiconstrained was placed over the proximal aspect of the humerus. The patient had good range of motion and good stability. X-rays were obtained with C-arm to verify that the shoulder joint was in good alignment. The wound was copiously irrigated with antibiotic solution using the high-speed technical program manager. Good hemostasis was obtained after the prosthesis was inserted, and the shoulder was closed using #2 Vicryl for the fascia over the anterior aspect of the proximal humerus, #1 Vicryl for the fascia and the deltoid and pectoralis close the interval and then 0 Vicryl for the fat and subcutaneous tissue, and the skin was closed with skin alton. Sterile dressing was applied. The patient was placed in a shoulder immobilizer. He was awakened, extubated, and transferred to recovery room in stable condition. ESTIMATED BLOOD LOSS: 700 mL. COMPLICATIONS: None. Job ID: [id number]
[2019-12-26] MEDS ORDERED: Sodium Chloride 0.9% 250 ML IV SCH (04:00)
[2019-12-26] MEDS: CEFAZOLIN 2 GM in Premix Bag 1 BAG IVPB SCH (04:01)
[2019-12-26] MEDS: Ketorolac Tromethamine 30 MG/ML VIAL IVP SCH ×3 (05:19→19:41)
[2019-12-26 06:11] LABS: INR-International Normal Ratio 1.1; PTT 30.4 sec (22.9-36.1)
[2019-12-26 06:32] LABS: #Lymphocytes 1.3 thou/uL (1.20-3.40); #Monocytes 0.9 thou/uL (0.11-0.59); #Neutrophils 4.1 thou/uL (1.40-6.50); %Basophils 0.3 % (0.0-1.0); %Eosinophils 0.2 % (0.0-10.0); %Lymphocytes 20.9 % (21.0-51.0); %Monocytes 13.9 % (0.0-10.0); %Neutrophils 64.7 % (42.0-75.0); Hemoglobin 9.4 g/dL (14.0-18.0); Mean Corpuscular HGB CONC 34.7 g/dL (32.0-36.0); Mean Corpuscular Hemoglobin 30.2 pg (27.0-31.0); Mean Corpuscular Volume 87.2 fL (78.0-98.0); Mean Platelet Volume 8.4 fL (7.4-10.4); Platelet Count 171 thou/uL (130-400); RBC Distribution Width 14.9 % (11.5-14.5); White Blood Cell (WBC) Count 6.3 thou/uL (4.8-10.8)
[2019-12-26 06:33] LABS: Anion Gap 11 mmol/L (10-20); BUN (Urea Nitrogen) 9 mg/dL (8.4-25.7); Calc. Creatinine Clearance 99 mL/min (70-130); Carbon Dioxide 25 mmol/L (23-31); Chloride 109 mmol/L (98-107); Estimated GFR-MDRD Greater than 90; Glucose 102 mg/dL (80-115); Potassium 3.7 mmol/L (3.5-5.1); Sodium 141 mmol/L (136-145)
--- NOTE | 2019-12-26 06:49 | CON ---
DATE OF CONSULTATION: 12/25/2019 TIME OF ASSESSMENT: 1700 hours. REASON FOR CONSULTATION: Medical management. CHIEF COMPLAINT: Right shoulder pain. HISTORY OF PRESENT ILLNESS: Mr. Moore is a pleasant 69-year-old gentleman who is status post open reduction of dislocated right total shoulder replacement done by Dr. Rivera earlier today. The patient states he has been back from surgery since 30 minutes ago and is very eager to eat. States he feels hungry. Denies having any nausea or vomiting. Denies having any abdominal pain. No headaches. States his pain is somewhat under control, but feels the analgesia is starting to wear off. His caregiver is at bedside and reports concern over persistent pedal edema for the last week or so. The patient apparently has not been eating meals provided at the assisted living, stating that on one occasion, he was served raw chicken. For that reason, he has been snacking instead. The snacks have included foods that are high in sodium content such as barbecue chips. He states that the edema in both feet has not worsened over the last 2 days, but is definitely worse from usual. REVIEW OF SYSTEMS: At this present time, he denies having any other complaints. He is resting comfortably. All other review of systems are negative. PAST MEDICAL HISTORY: 1. Hypertension. 2. Rheumatoid arthritis. 3. COPD. PAST SURGICAL HISTORY: 1. Bilateral elbow surgery. 2. GI surgery for "twisted esophagus". 3. Bilateral wrist surgery. 4. Bilateral total knee replacement. 5. Status post right total shoulder revision/replacement. 6. Right rotator cuff repair. 7. Left shoulder surgery. ALLERGIES: NO KNOWN DRUG ALLERGIES. CURRENT MEDICATIONS: 1. Cholecalciferol. 2. Etanercept. 3. Methotrexate. 4. Amlodipine. 5. Gabapentin. 6. HCTZ. 7. Hydrocodone. 8. Lisinopril. PHYSICAL EXAMINATION: GENERAL: The patient appears thin, well developed, in no acute distress. VITAL SIGNS: Temperature 97.8, pulse 74, respirations 18, O2 saturation 99% on room air, and blood pressure 93/57. HEENT: Normocephalic and atraumatic. Pupils equal, round, react to light. Sclerae without icterus. Oropharynx is clear. NECK: Supple. LUNGS: Clear to auscultation bilaterally. CARDIAC: Regular rate and rhythm. ABDOMEN: Soft, nontender, nondistended. Bowel sounds present. No guarding or rigidity. No renal angle tenderness. EXTREMITIES: Notable for +2 pedal edema. NEUROLOGIC: Alert and oriented x3. SKIN: Warm and dry. LABORATORY DATA: Showed white count of 5.2, hemoglobin 12.2, hematocrit 37.5, and platelets 239. Sodium 141, potassium 3.7, chloride 108, BUN 7, creatinine 0.70, anion gap 13, GFR greater than 90, glucose 86, calcium 9.3. Right shoulder x-ray done on December 25, 2019. Showed satisfactory postoperative appearance. IMPRESSION AND PLAN: Mr. Moore is a very pleasant 69-year-old gentleman with a known history of hyperlipidemia, hypertension, chronic obstructive pulmonary disease, and rheumatoid arthritis, who is status post recurrent dislocation of the right reverse total shoulder replacement with revision of the right reverse total shoulder replacement completed earlier today. The patient states the pain is starting to return. We will continue analgesia as per Dr. Rivera's orders. The patient otherwise with no complaints except for feeling hungry. Diet order has been entered. We will continue to monitor blood pressure and reconcile home medications once verified. The patient seems to be doing well overall. However, there is a concern regarding bilateral pedal edema associated with increased sodium content due to lack of access to adequate food at the assisted living. The patient is refusing to discuss options for adequate intake or meet with a dietitian. States he has attempted to seek out his options and he does not have any. Does not wish to talk to anyone at this time. We will add on a BNP to his labs. HCTZ has been reconciled. He is on gentle hydration. We will repeat labs in the morning. The patient otherwise without complaints. Code status full and he is unable to tell his surrogate decision maker at this time. Next of kin will soon be contacted, is Christian Sauer. Thank you for this consultation. We will continue to follow this patient with you. Job ID: [id number]
[2019-12-26] MEDS: Acetaminophen 325 MG TAB PO PRN ×2 (08:50→19:41)
[2019-12-26] MEDS: Gabapentin 100 MG CAP PO SCH (08:51)
[2019-12-26] MEDS ORDERED: Amlodipine 5 MG TAB PO SCH (09:00)
[2019-12-26] MEDS ORDERED: Sodium Chloride 0.9% 500 ML IV SCH (12:00)
[2019-12-26] MEDS: Lisinopril 20 MG TAB PO SCH ×2 (12:59→19:39)
[2019-12-26] MEDS: Hydrochlorothiazide 25 MG TAB PO SCH (12:59)
--- NOTE | 2019-12-26 15:28 | PDOC.HOSPP ---
- Subjective Encounter Date: 12/26/19 Subjective: Patient reports some pain in the right shoulder. Otherwise he feels well and just wants more coffee. - Objective Vital Signs & Weight: Vital Signs (12 hours) Temp Pulse Resp BP BP Pulse Ox 12/26/19 12:59 91 93/57 L 12/26/19 11:09 98.2 F 91 14 94/53 L 95 12/26/19 07:32 98.0 F 84 16 99/54 L 99 12/26/19 04:25 78 99/59 L 12/26/19 03:42 97.7 F 76 18 86/54 L 99 Weight Admit Weight 153 lb Weight 153 lb I&O: 12/25/19 12/26/19 12/27/19 06:59 06:59 06:59 Intake Total 3290 700 Balance 3290 700 Result Diagrams: 12/26/19 05:43 12/26/19 05:43 Hospitalist ROS - Medication Medications: Active Medications Generic Name Dose Route Start Last Admin Trade Name Freq PRN Reason Stop Dose Admin Acetaminophen 650 mg 12/25/19 18:30 12/26/19 08:50 Tylenol PO 650 mg Q4H PRN Administration Headache/Fever/Mild Pain (1-3) Gabapentin 100 mg 12/26/19 09:00 12/26/19 08:51 Neurontin PO 100 mg DAILY FRENCH Administration Hydrochlorothiazide 12.5 mg 12/26/19 09:00 12/26/19 12:59 Hydrochlorothiazide PO Not Given DAILY FRENCH Lactated Ringer's 1,000 mls @ 65 mls/hr 12/25/19 16:00 12/25/19 19:55 Lactated Ringer's IV 1,000 mls .[id number] FRENCH Administration Ketorolac Tromethamine 15 mg 12/25/19 18:00 12/26/19 11:51 Toradol IVP 12/26/19 18:01 15 mg Q6HR FRENCH Administration Morphine Sulfate 2 mg 12/25/19 15:48 12/25/19 18:45 Morphine SLOW IVP 2 mg Q2H PRN Administration Moderate Pain (4-6) - Exam General Appearance: NAD, awake alert Heart: RRR, no murmur, no gallops, no rubs, normal peripheral pulses Respiratory: CTAB, no wheezes, no rales, no ronchi, normal chest expansion, no tachypnea, normal percussion Gastrointestinal: soft, non-tender, non-distended, normal bowel sounds, no palpable masses, no hepatomegaly, no splenomegaly, no bruit Extremities: no cyanosis, no clubbing, no edema Extremities - other findings: OA changes of the hands Neurological: no focal deficits Musculoskeletal: normal tone Psychiatric: normal affect, normal behavior, A&O x 3 Hosp A/P (1) Hypotension Status: Acute (2) Rheumatoid arthritis Code(s): M06.9 - RHEUMATOID ARTHRITIS, UNSPECIFIED Status: Acute (3) COPD (chronic obstructive pulmonary disease) Status: Chronic (4) Hypertension Code(s): I10 - ESSENTIAL (PRIMARY) HYPERTENSION Status: Chronic (5) Osteoarthritis of shoulder Code(s): M19.019 - PRIMARY OSTEOARTHRITIS, UNSPECIFIED SHOULDER Status: Acute - Plan This patient is generally doing well postop. He does have some relative hypotension. His amlodipine and lisinopril have been held this morning. He received a liter of fluids last night. I am getting give him an additional 500 cc of normal saline bolus x1 now reviewing his previous echocardiogram from 2018 he had an ejection fraction of 65 to 70% and generally normally functioning heart. I believe he will tolerate fluid boluses well. We will put some parameters on his existing home blood pressure medications. Suspect this will improve in the next 24 hours.
--- NOTE | 2019-12-26 19:34 | PRG ---
DATE OF SERVICE: 12/26/2019 SUBJECTIVE: Mr. Moore is 1 day status post open revision right reverse total shoulder replacement. The patient reports that he has fairly good pain control. The patient did receive a unit of blood yesterday during and after surgery. His hemoglobin this morning was 9.4. The patient is able to move digits in his right hand. Nurse reports some bleeding in the dressing, which had to be changed. OBJECTIVE: LAST VITAL SIGNS: Temperature 98.2, pulse 91, respiratory rate 14, blood pressure 94/53. LABORATORY DATA: White count 6.3, hemoglobin 9.4, hematocrit 27. PT and PTT are normal. Chemistries are within normal limits. BNP is 21.2. PLAN: The patient will continue hospitalization. We will keep a close eye on his blood pressure. We will also check his hemoglobin and hematocrit tomorrow. Physical Therapy will work with the patient as far as being able to independently get out of bed safely. Job ID: [id number]
[2019-12-26] MEDS: Lactated Ringer's 1,000 ML IV SCH (19:40)
[2019-12-27] MEDS ORDERED: Amlodipine 5 MG TAB PO SCH (09:00)
[2019-12-27] MEDS: Hydrochlorothiazide 25 MG TAB PO SCH (09:02)
[2019-12-27] MEDS: Lisinopril 20 MG TAB PO SCH (09:02)
[2019-12-27] MEDS: Gabapentin 100 MG CAP PO SCH (09:03)
[2019-12-27] MEDS: Lactated Ringer's 1,000 ML IV SCH (09:07)
[2019-12-27 11:17] VITALS: TEMP 98.1
[2019-12-27 12:42] LABS: #Eosinphils 0.1 thou/uL (0.0-0.7); #Lymphocytes 1.8 thou/uL (1.20-3.40); #Monocytes 0.6 thou/uL (0.11-0.59); #Neutrophils 3.6 thou/uL (1.40-6.50); %Basophils 0.7 % (0.0-1.0); %Eosinophils 2.3 % (0.0-10.0); %Lymphocytes 28.8 % (21.0-51.0); %Monocytes 10.4 % (0.0-10.0); %Neutrophils 57.8 % (42.0-75.0); Hemoglobin 9.2 g/dL (14.0-18.0); Mean Corpuscular HGB CONC 32.5 g/dL (32.0-36.0); Mean Corpuscular Hemoglobin 28.5 pg (27.0-31.0); Mean Corpuscular Volume 87.9 fL (78.0-98.0); Mean Platelet Volume 7.9 fL (7.4-10.4); Platelet Count 169 thou/uL (130-400); RBC Distribution Width 15.1 % (11.5-14.5); Red Blood Cell (RBC) Count 3.21 mill/uL (4.70-6.10); White Blood Cell (WBC) Count 6.2 thou/uL (4.8-10.8)
[2019-12-27 15:27] VITALS: BP 116/72
--- NOTE | 2019-12-28 02:25 | DIS ---
DATE OF ADMISSION: 12/25/2019 DATE OF DISCHARGE: 12/27/2019 HISTORY OF PRESENT ILLNESS: Please see admission history and physical. HOSPITAL COURSE: The patient was worked up medically prior to admission and found to be stable for surgery. He was given perioperative IV antibiotics, taken to the operating room, where the patient underwent a revision right reverse total shoulder replacement. The patient had quite a bit of bloody drainage after surgery. He did require 1 unit of packed red blood cells during and shortly after surgery. His laboratory was followed. Day after surgery, his hemoglobin is 9.4 and on the date of discharge on 12/27/2019 was 9.2. The patient remained afebrile. At first, his blood pressure was low, but this responded to boluses of fluid and last. OBJECTIVE: Vital signs showed the patient was afebrile, pulse is 80, respiratory rate 18, O2 saturation is 95% on room air, and his blood pressure was 112/70. The incision still has some drainage, but it was decreasing. The patient actually had better sensation in the right hand and upper extremity postoperatively than he did preoperatively. He was able to control the pain with no pain medicine and the patient was stable [facility]. 1. 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 2. Anemia secondary to expected blood loss from surgery. FOLLOWUP: The patient will follow up with me in 2 weeks. Orders were written for [facility] the [facility] to change dressing to the right shoulder daily and p.r.n. they may leave the dressing off when there is no drainage. Physical Therapy is to help the patient get out of bed, but not to move or use the right shoulder and used to wear the shoulder immobilizer at all times except for cleaning the skin. DISCHARGE DIET: Heart healthy. Job ID: [id number]
--- NOTE | 2019-12-29 09:13 | PQF ---
[facility] Certified Prosthetist Crystal Reports [facility] CenterDong lopez JERE KONG MD [id number] CLINICAL DOCUMENTATION CLARIFICATION FORM: POST DISCHARGE Addendum to original discharge summary date: ____ Late entry note date: __ DATE: 12/29/2019 ATTN: Jeer Mann Please exercise your independent, professional judgment in responding to the clarification form. Clinical indicators are provided on the bottom of this form for your review Please check appropriate box(s): [ ] Bleeding is a complication of current revision of right reverse total shoulder replacement surgery [ ] Bleeding is not a complication of current revision of right reverse total shoulder replacement surgery [ ] Other diagnosis [ ] Unable to determine In addition, please specify: Present on Admission (POA): [ ] Yes [ ] No [ ] Unable to determine CLINICAL INDICATORS - SIGNS / SYMPTOMS / LABS Patient had quite a bit of bloody drainage after surgery. He did require 1 unit of packed red blood cells during and shortly after surgery - Discharge summary Nurse reports some bleeding in the dressing, which had to be changed - PN 12/25 by Jere Kong MD Anemia secondary to expected blood loss from surgery - Discharge summary RISK FACTORS Revision of right reverse total should replacement - OP report 12/24 by Jere Kong MD TREATMENT: Transfusion of red blood cells 12/24 - Blood bank (This form is maintained as a part of the permanent medical record) 2014 [employer]. All Rights Reserved Keon [email or web address] [place]
== END 2019-12-27 19:00 | DRG 483 ==
LOC: SDC 09:55 → OBSVTOIN 17:30 → SJJU 17:30
PROVIDERS: ADMIT Orthopaedic Surgery; ATTEND Orthopaedic Surgery
PROC: 0RRJ00Z Replacement of Right Shoulder Joint with Reverse Ball and Socket Synthetic Substitute, Open Approach (ICD-10-PCS; principal; 2019-12-25)
PROC: 0RPJ0JZ Removal of Synthetic Substitute from Right Shoulder Joint, Open Approach (ICD-10-PCS; 2019-12-25)
PROC: 30233N1 Transfusion of Nonautologous Red Blood Cells into Peripheral Vein, Percutaneous Approach (ICD-10-PCS; 2019-12-25)
DX: T84.028A Dislocation of other internal joint prosthesis, initial encounter (principal); D62 Acute posthemorrhagic anemia; I10 Essential (primary) hypertension; Y83.1 Surgical operation with implant of artificial internal device as the cause of abnormal reaction of the patient, or of later complication, without mention of misadventure at the time of the procedure; M06.9 Rheumatoid arthritis, unspecified; J44.9 Chronic obstructive pulmonary disease, unspecified; Z96.653 Presence of artificial knee joint, bilateral; E78.5 Hyperlipidemia, unspecified; I95.9 Hypotension, unspecified; Z11.59 Encounter for screening for other viral diseases; Z98.890 Other specified postprocedural states
CPT/HCPCS: 36415; 36430; 76000; 80048; 83735; 83880; 85025; 85027; 85610; 85730; 86850; 86900; 86901; 93005; 93010; C1713; C1776; J0690; J1100; J1885; J2001; J2250; J2270; J2405; J2704; J3010; P9016

== ENCOUNTER 2020-03-31 07:49 | Outpatient (CLI) | payer MEDICARE, MEDICAID, OTHER ==
[2020-03-31 16:19] LABS: Hemoglobin 9.8 g/dL (14.0-18.0); Mean Corpuscular HGB CONC 31.5 g/dL (32.0-36.0); Mean Corpuscular Hemoglobin 25.9 pg (27.0-31.0); Mean Corpuscular Volume 82.3 fL (78.0-98.0); Mean Platelet Volume 8.4 fL (7.4-10.4); Platelet Count 350 thou/uL (130-400); RBC Distribution Width 14.9 % (11.5-14.5); Red Blood Cell (RBC) Count 3.76 mill/uL (4.70-6.10); White Blood Cell (WBC) Count 5.5 thou/uL (4.8-10.8)
[2020-03-31 16:41] LABS: Anion Gap 14 mmol/L (10-20); BUN (Urea Nitrogen) 9 mg/dL (8.4-25.7); Calc. Creatinine Clearance 0 mL/min (70-130); Calcium 8.4 mg/dL (7.8-10.44); Carbon Dioxide 24 mmol/L (23-31); Chloride 104 mmol/L (98-107); Estimated GFR-MDRD Greater than 90; Glucose 96 mg/dL (80-115); Potassium 3.9 mmol/L (3.5-5.1); Sodium 138 mmol/L (136-145)
[2020-04-01 13:03] LABS: SARS-CoV-2 MS2 Positive; SARS-CoV-2 N Gene Negative; SARS-CoV-2 S Gene Negative; SARS-CoV-2 by NAA Not Detected (NotDetected); SARS-CoV-2 orf1ab Negative
== END 2020-03-31 07:50 | disposition home or self-care (01) ==
LOC: LABBT 07:49
PROVIDERS: ATTEND Orthopaedic Surgery
DX: Z01.818 Encounter for other preprocedural examination (principal); Z20.828 Contact with and (suspected) exposure to other viral communicable diseases; T84.02 Dislocation of internal joint prosthesis
CPT/HCPCS: 80048; 85027; U0003; 87635; 93005; 93010

== ENCOUNTER 2020-04-02 09:22 | Inpatient (IN) | payer MEDICARE, MEDICAID, OTHER ==
[~2020-04-02 09:22] MED LIST: Glycopyrrolate 0.2 MG/ML 5 ML SYRINGE ONE; Lidocaine 1% PF 5 ML VIAL ONE; Ondansetron PF 4 MG/2 ML Vial ONE; PHENYLEPHRINE-NS 100 MCG/ML 10 ML SYRINGE ONE; PROPOFOL 200 MG/20 ML VIAL ONE; Rocuronium Bromide 10 MG/ML (10ML VIAL) ONE
[2020-04-02] MEDS ORDERED: Heparin 1,000 UNITS/ML VIAL ONE (09:50)
[2020-04-02] MEDS ORDERED: Fentanyl 100 MCG/2 ML VIAL ONE ×2 (10:34→13:08)
[2020-04-02] MEDS ORDERED: Phenylephrine 10 MG/ML VIAL ONE (10:34)
[2020-04-02] MEDS ORDERED: Gentamicin 80 MG/2 ML VIAL ONE (10:55)
[2020-04-02] MEDS ORDERED: Fentanyl 100 MCG/2 ML VIAL SLOW IVP PRN (13:47)
--- NOTE | 2020-04-02 15:06 | OP ---
DATE OF PROCEDURE: 04/02/2020 PREOPERATIVE DIAGNOSIS: Infected and dislocated reverse right total shoulder replacement. POSTOPERATIVE DIAGNOSIS: Infected and dislocated reverse right total shoulder replacement. PROCEDURE PERFORMED: 1. Irrigation and debridement of the right shoulder using Pulsavac. 2. Removal of reverse total shoulder replacement. ANESTHESIA: General. DESCRIPTION OF PROCEDURE: The patient was taken to the operating room, placed in the supine position. Satisfactory general anesthesia was performed. He was then placed in a beach-chair position. The right shoulder and upper extremity were sterilely prepped and draped in usual fashion. The patient had an open wound that had some purulent drainage and the prosthesis was protruding through the anterior aspect of the wound. Incision was made in the previous scar and initially, the prosthesis was removed from the proximal aspect of the humerus and then the glenosphere was removed along with the baseplate and the screws on the glenoid. The wound was debrided using a rongeur and curettes. There was some soft tissue bone that had formed in the posterolateral aspect of the humerus deep to the deltoid. This was removed sharply. The proximal aspect of the humerus was excised using oscillating saw and then the entire wound was copiously irrigated with antibiotic solution using the high-speed wardrobe specialty worker. There was good bleeding bone and all the soft tissue had good vascularity. Hemostasis was obtained and then the proximal aspect of the shaft of the right humerus was sutured to the posterolateral soft tissue, using #2 FiberWire in a [id number] suture by drilling holes in the bone and then bringing the suture through the soft tissue. Two of these sutures were utilized. The wound was then partially closed using #1 Prolene with interrupted vertical mattress sutures. Sterile dressing was applied and the patient was awakened, extubated, and transferred to recovery room in stable condition. ESTIMATED BLOOD LOSS: 450 mL. COMPLICATIONS: None. SPECIMENS: Sent prior to debridement or irrigation and was sent for culture and sensitivity from deep in the shoulder joint. Job ID: [id number]
[2020-04-02] MEDS: Sodium Chloride 0.9% 1,000 ML IV SCH ×2 (15:49→23:34)
--- NOTE | 2020-04-02 16:48 | RAD ---
RIGHT SHOULDER: 04/02/20 Two views. HISTORY: Hardware removal. COMPARISON: Comparison made to shoulder films from 03/04/20 which revealed a right shoulder prosthesis. FINDINGS/IMPRESSION: The shoulder prosthesis including intramedullary component and the humeral head component have been r emoved. There is surrounding soft tissue heterotopic calcification which was noted on the prior exam. Degenerative change at the AC joint with hypertrophic change again noted. The distal humerus is abno rmally positioned and does not align with the glenoid. There is anterior position of the distal humer us. POS: AGW
[2020-04-02] MEDS: Ketorolac Tromethamine 30 MG/ML VIAL IVP SCH ×2 (18:41→23:34)
[2020-04-02] MEDS ORDERED: traMADol HCl 50 MG TAB PO PRN (18:48)
[2020-04-02] MEDS ORDERED: HYDROcodone/Acetaminophen 10/325 mg Tablet PO PRN (18:48)
--- NOTE | 2020-04-02 18:52 | PDOC.HOSPP ---
- Subjective Encounter Date: 04/02/20 Encounter Time: 18:45 Subjective: awake, no sob is recieving his 2nd unit or prbc - Objective Vital Signs & Weight: Vital Signs (12 hours) Temp Pulse Ox 04/02/20 15:44 96.2 F L 04/02/20 14:59 98 04/02/20 14:42 97.6 F Weight Weight 160 lb Most Recent Monitor Data Heart Rate from ECG 79 NIBP 123/74 NIBP BP-Mean 90 Respiration from ECG 15 SpO2 100 I&O: 04/01/20 04/02/20 04/03/20 06:59 06:59 06:59 Intake Total 0 Balance 0 Hospitalist ROS - Review of Systems Constitutional: reports: fever, weakness Eyes: denies: pain, vision change, conjunctivae inflammation, eyelid inflammation, redness, other ENT: denies: ear pain, ear discharge, nose pain, nose discharge, nose congestion , mouth pain, mouth swelling, throat pain, throat swelling, other Respiratory: reports: SOB with excertion Cardiovascular: denies: chest pain, palpitations, orthopnea, paroxysmal noc. dyspnea, edema, light headedness, other Gastrointestinal: denies: nausea, vomiting, abdominal pain, diarrhea, constipation, melena, hematochezia, other Genitourinary: denies: dysuria, frequency, incontinence, hematuria, retention, other Musculoskeletal: reports: shoulder pain, hand pain Skin: reports: rash Neurological: reports: weakness - Medication Medications: Active Medications Generic Name Dose Route Start Last Admin Trade Name Freq PRN Reason Stop Dose Admin Sodium Chloride 1,000 mls @ 100 mls/hr 04/02/20 14:00 04/02/20 15:49 Normal Saline 0.9% IV 1,000 mls .Q10H FRENCH Administration Ketorolac Tromethamine 15 mg 04/02/20 18:00 04/02/20 18:41 Toradol IVP 04/05/20 18:01 15 mg Q6HR FRENCH Administration - Exam General Appearance: awake alert Eye: PERRL, anicteric sclera ENT: no oropharyngeal lesions, dry oral mucosa Neck: supple, no JVD Heart: RRR, no murmur Respiratory: no wheezes, no rales, rhonchi Gastrointestinal: soft, non-tender, non-distended, normal bowel sounds Extremities: no cyanosis, no edema Neurological: cranial nerve grossly intact, no focal deficits Psychiatric: A&O x 3 Hosp A/P (1) Septic arthritis of shoulder, right Code(s): M00.9 - PYOGENIC ARTHRITIS, UNSPECIFIED Status: Acute Qualifiers: Septic arthritis organism: due to unspecified organism Qualified Code(s): M00.9 - Pyogenic arthritis, unspecified (2) Acute postoperative anemia due to expected blood loss Code(s): D62 - ACUTE POSTHEMORRHAGIC ANEMIA Status: Acute (3) Rheumatoid arthritis Code(s): M06.9 - RHEUMATOID ARTHRITIS, UNSPECIFIED Status: Chronic Qualifiers: Rheumatoid arthritis location: multiple sites Rheumatoid factor presence: unspecified presence Qualified Code(s): M06.9 - Rheumatoid arthritis, unspecified (4) COPD (chronic obstructive pulmonary disease) Status: Chronic Qualifiers: COPD type: unspecified COPD Qualified Code(s): J44.9 - Chronic obstructive pulmonary disease, unspecified (5) Hypertension Code(s): I10 - ESSENTIAL (PRIMARY) HYPERTENSION Status: Chronic Qualifiers: Hypertension type: essential hypertension Qualified Code(s): I10 - Essential (primary) hypertension - Plan is receiving 2nd unit of prbc now, sbp around 110 hemodynamically stable now iv fluids, oral diet selected home meds as above d/w , he will be on vanc await shoulder cultures, will order blood cultures (may not grow any due to him being on antibiotics) is s/p removal of hard sarmiento from right shoulder reverse arthroplasty with incision and drainage 04/02/20 by will f/u, labs are ordered for am has recent h/o non occlusive dvt in left popliteal vein, is off eliquis for surgery may restart on 04/04 due to ac blood loss anemia post op and risk for bleeding is started too soon, if cleared by .
[2020-04-02] MEDS: Gabapentin 100 MG CAP PO SCH (20:42)
[2020-04-02] MEDS: HYDROcodone/Acetaminophen 10/325 mg Tablet PO PRN (20:42)
[2020-04-02] MEDS: Vancomycin HCl 1.25 GM in Sodium Chloride 0.9% 250 ML 250 ML IVPB SCH (20:42)
[2020-04-02] MEDS ORDERED: Vancomycin HCl 1 GM in Sodium Chloride 0.9% 250 ML 300 ML IVPB SCH (21:00)
--- NOTE | 2020-04-02 23:10 | CON ---
DATE OF CONSULTATION: 04/02/2020 REASON FOR CONSULTATION: Right shoulder infection. HISTORY OF PRESENT ILLNESS: A 69-year-old with history of rheumatoid arthritis on Enbrel, prednisone, and methotrexate; hypertension; and COPD, who had a shoulder replacement. I believe the beginning of this year, but is not clear. It must have been done in another hospital. He sustained dislocation of the shoulder joint in December and had to have it repaired by Dr. Rivera. At that time, propionibacterium acne and Staph epidermidis were retrieved from the shoulder. It looks like he received antimicrobial therapy for about 10 days. He had another procedure in March 04 with the irrigation and debridement of the right shoulder with Pulsavac. He was discharged on Ceftin 250 mg twice daily for 20 days with one refill and now he was readmitted and had the implants removed by Dr. Rivera. We have some initial Gram stain results. No organisms are seen. Currently, Mr. Moore is awake. He is having mild pain in the right shoulder. Denies headaches. No sore throat, odynophagia, or dysphagia. No cough or sputum production. No chest pain. No dyspnea. No abdominal pain or diarrhea. No genitourinary symptoms. He has multiple joint procedures in the past with bilateral knee replacements. His left shoulder is not functional, he has a very little range of motion due to prior rotator cuff disruption. Denies any abdominal pain. He is voiding without difficulty in the diaper. No diarrhea. PAST MEDICAL HISTORY: Hypertension, COPD, rheumatoid arthritis, multiple joint replacements, and right shoulder propionibacterium bacterium infection. ALLERGIES: NONE. MEDICATIONS: He takes; 1. Methotrexate. 2. Enbrel. 3. Lisinopril. 4. Hydroxyzine. 5. Tamsulosin. 6. Celebrex. FAMILY HISTORY: Negative. SOCIAL HISTORY: Never smoker. No alcoholic beverage use. Retired, disabled. PHYSICAL EXAMINATION: VITAL SIGNS: T-max 97.6, BP 111/65, heart rate 75, and O2 saturation 100. GENERAL: He appears in no distress. Peripheral IV access. The right shoulder with bulky dressing over it. HEENT: His ocular movements are conjugate. Oral cavity with numerous missing teeth, remainder ones with marked decay and gum disease. NECK: Supple. No jugular vein distention. LUNGS: Symmetric clear breath sounds. HEART: S1 and S2. Regular rate. No S3 or S4. ABDOMEN: Soft, not distended or tender. No ascites. No bladder distention. EXTREMITIES: He has no knee inflammatory activity. No ankle inflammatory activity. Pulses 1+ in dorsalis pedis. Plantar responses are flexor. NEUROLOGIC: His cognitive function appears to be intact. It is hard to understand his speech due to some element of dysarthria and difficult articulation of his words. He seems to be oriented. LABORATORY DATA: His latest white cell count was 5.5, hemoglobin 9.8, and platelets 350 with a normal differential except for some monocytosis. INR 1.1. Sodium 138, creatinine 0.59, AST 58, total bilirubin 1.5, and ALT 34. CK 267. CRP 1.46. Albumin 3.0. COVID was negative. Hepatitis C nonreactive. Rheumatoid factor positive that is from 2018. IMAGING: Shoulder x-ray from today with documented removal of the prosthesis, some heterotopic calcification noted. ASSESSMENT: Rheumatoid arthritis, multiple joint involvement with various replacements and now infection of the right shoulder with propionibacterium initially identified in December this year. Now, the patient had the implant removed. DISCUSSION: Propionibacterium infections are very prevalent in shoulder replacements and quite adherent to the implants, usually forming biofilm with a higher rate of recurrence. Now that the implant was removed, we will recommend treatment with IV Rocephin for protracted period of time and since all the foreign body has been removed and he is not going to require suppressive treatment. Job ID: [id number]
[2020-04-03 03:59] LABS: Anion Gap 15 mmol/L (10-20); BUN (Urea Nitrogen) 8 mg/dL (8.4-25.7); Calc. Creatinine Clearance 119 mL/min (70-130); Carbon Dioxide 21 mmol/L (23-31); Chloride 109 mmol/L (98-107); Estimated GFR-MDRD Greater than 90; Glucose 91 mg/dL (80-115); Potassium 4.1 mmol/L (3.5-5.1); Sodium 141 mmol/L (136-145)
[2020-04-03 04:02] LABS: ALT (SGPT) Less than 7 U/L (8-55); AST (SGOT) 10 U/L (5-34); Alkaline Phosphatase 109 U/L (40-110); Bilirubin, Direct 0.4 mg/dL (0.1-0.3); Bilirubin, Total 0.9 mg/dL (0.2-1.2); Protein, Total 5.8 g/dL (5.8-8.1)
[2020-04-03 04:23] LABS: Band 1 % (5-11); Eosinophils 1 % (0-10); Hemoglobin 10.3 g/dL (14.0-18.0); Lymphocytes 23 % (21-51); MDiff Complete? YES; Mean Corpuscular HGB CONC 32.3 g/dL (32.0-36.0); Mean Corpuscular Volume 83.7 fL (78.0-98.0); Mean Platelet Volume 8.4 fL (7.4-10.4); Monocytes 12 % (0-10); Neutrophil 62 % (42-75); Platelet Count 134 thou/uL (130-400); Platelet Morphology Comment Appears Adequate; RBC Distribution Width 14.5 % (11.5-14.5); Reactive Lymphocytes 1 % (0-10); Red Blood Cell (RBC) Count 3.79 mill/uL (4.70-6.10); White Blood Cell (WBC) Count 7.5 thou/uL (4.8-10.8)
[2020-04-03] MEDS: Ketorolac Tromethamine 30 MG/ML VIAL IVP SCH ×4 (05:58→23:01)
[2020-04-03] MEDS: Cholecalciferol 1,000 UNITS (25 MCG) TAB PO SCH (08:58)
[2020-04-03] MEDS: Sodium Chloride 0.9% 1,000 ML IV SCH ×2 (08:59→20:54)
[2020-04-03] MEDS: Vancomycin HCl 1.25 GM in Sodium Chloride 0.9% 250 ML 250 ML IVPB SCH ×2 (09:56→20:54)
--- NOTE | 2020-04-03 11:18 | PDOC.HOSPP ---
- Subjective Encounter Date: 04/03/20 Encounter Time: 08:45 Subjective: awake, no sob or chest pain has tolerable pain in his right shoulder has not ambulated post surgery - Objective Vital Signs & Weight: Vital Signs (12 hours) Temp Resp Pulse Ox 04/03/20 08:05 100 04/03/20 07:36 97.2 F L 04/03/20 03:34 97.1 F L 04/03/20 02:20 14 04/03/20 00:00 16 04/02/20 23:46 97.0 F L Weight Weight 165 lb Most Recent Monitor Data Heart Rate from ECG 71 NIBP 96/61 NIBP BP-Mean 72 Respiration from ECG 16 SpO2 100 I&O: 04/02/20 04/03/20 04/04/20 06:59 06:59 06:59 Intake Total 2660 Balance 2660 Result Diagrams: 04/03/20 03:36 04/03/20 03:36 Hospitalist ROS - Medication Medications: Active Medications Generic Name Dose Route Start Last Admin Trade Name Freq PRN Reason Stop Dose Admin Hydrocodone Bitart/Acetaminophen 1 tab 04/02/20 13:48 04/02/20 20:42 [place] 10/325 PO 1 tab Q6H PRN Administration Mild Pain (1-3) Cholecalciferol 2,000 units 04/03/20 09:00 04/03/20 08:58 Vitamin D3 PO 2,000 units DAILY FRENCH Administration Gabapentin 100 mg 04/02/20 21:00 04/02/20 20:42 Neurontin PO 100 mg HS FRENCH Administration Sodium Chloride 1,000 mls @ 100 mls/hr 04/02/20 14:00 04/03/20 08:59 Normal Saline 0.9% IV 1,000 mls .Q10H FRENCH Administration Vancomycin HCl 1.25 gm/ Sodium 250 mls @ 166.667 mls/hr 04/02/20 20:00 09:56 Chloride IVPB 250 mls FRENCH Administration Ketorolac Tromethamine 15 mg 04/02/20 18:00 04/03/20 05:58 Toradol IVP 04/05/20 18:01 15 mg Q6HR FRENCH Administration Pantoprazole Sodium 40 mg 04/03/20 09:00 04/03/20 08:58 Protonix PO 40 mg DAILY FRENCH Administration Sodium Chloride 10 ml 04/03/20 09:00 04/03/20 08:59 Flush - Normal Saline IVF 10 ml Q12HR FRENCH Administration - Exam General Appearance: awake alert Eye: PERRL, anicteric sclera ENT: no oropharyngeal lesions, dry oral mucosa Neck: supple, no JVD Heart: RRR, no murmur Respiratory: no wheezes, no rales Gastrointestinal: soft, non-tender, non-distended, normal bowel sounds Extremities - other findings: right shoulder in dressing Neurological: cranial nerve grossly intact, no focal deficits Psychiatric: A&O x 3 Hosp A/P (1) Septic arthritis of shoulder, right Code(s): M00.9 - PYOGENIC ARTHRITIS, UNSPECIFIED Status: Acute Qualifiers: Septic arthritis organism: due to unspecified organism Qualified Code(s): M00.9 - Pyogenic arthritis, unspecified (2) Acute postoperative anemia due to expected blood loss Code(s): D62 - ACUTE POSTHEMORRHAGIC ANEMIA Status: Acute (3) Rheumatoid arthritis Code(s): M06.9 - RHEUMATOID ARTHRITIS, UNSPECIFIED Status: Chronic Qualifiers: Rheumatoid arthritis location: multiple sites Rheumatoid factor presence: unspecified presence Qualified Code(s): M06.9 - Rheumatoid arthritis, unspecified (4) COPD (chronic obstructive pulmonary disease) Status: Chronic Qualifiers: COPD type: unspecified COPD Qualified Code(s): J44.9 - Chronic obstructive pulmonary disease, unspecified (5) Hypertension Code(s): I10 - ESSENTIAL (PRIMARY) HYPERTENSION Status: Chronic Qualifiers: Hypertension type: essential hypertension Qualified Code(s): I10 - Essential (primary) hypertension - Plan recieved total of 2 u prbc 04/02 hemodynamically stable, tx to medsur floor. oral diet selected home meds as above d/w , he will be on vanc await shoulder cultures, blood cultures (may not grow any due to him being on antibiotics) is s/p removal of hard sarmiento from right shoulder reverse arthroplasty with incision and drainage 04/02/20 by labs reviewed, Hb around 10g has recent h/o non occlusive dvt in left popliteal vein, is off eliquis for surgery may restart on 04/04 due to ac blood loss anemia post op and risk for bleeding is started too soon, if cleared by .
--- NOTE | 2020-04-03 18:39 | PRG ---
DATE OF SERVICE: 04/03/2020 Mr. Moore underwent removal of all of the hardware from the right shoulder including reverse total shoulder replacement, irrigation and debridement of the right shoulder. Cultures were obtained from the right shoulder at that time. He received 2 units of packed red blood cells because of the low blood pressure. His blood pressure has improved and is now on the regular floor. His last blood pressure was 112/72, respiratory rate 13, heart rate 72, and O2 saturation 100%. The patient states that he has good pain control. He is sitting in a chair out of bed. Vital signs as per above. The right upper extremity is neurovascularly intact. He is able to flex and extend all of his digits well. His microbiology is no growth at 24 hours. Blood cultures were all no growth to date. CBC shows white count of 7.5, hemoglobin 10.3, and hematocrit 31.7. PLAN: The patient is being followed by the hospitalist. Dr. Cardenas has also consulted on the patient since Propionibacterium acnes was cultured out of the shoulder. He is going to put the patient on IV Rocephin. The patient will try to work with Physical and Occupational Therapy, to be able to be as functional as possible with his right upper extremity since he has basically a shoulder disarticulation at this point. Job ID: [id number]
[2020-04-03] MEDS: Gabapentin 100 MG CAP PO SCH (21:03)
[2020-04-04] MEDS: Ketorolac Tromethamine 30 MG/ML VIAL IVP SCH ×4 (05:57→23:01)
[2020-04-04] MEDS: Sodium Chloride 0.9% 1,000 ML IV SCH (06:29)
[2020-04-04] MEDS: Cholecalciferol 1,000 UNITS (25 MCG) TAB PO SCH (08:19)
[2020-04-04 09:48] LABS: Vancomycin, Trough 11.6 ug/mL
[2020-04-04] MEDS: Vancomycin HCl 1.25 GM in Sodium Chloride 0.9% 250 ML 250 ML IVPB SCH (10:12)
--- NOTE | 2020-04-04 12:52 | PDOC.HOSPP ---
- Subjective Encounter Date: 04/04/20 Encounter Time: 10:40 Subjective: no sob, has pain in his right shoulder - Objective Vital Signs & Weight: Vital Signs (12 hours) Temp Pulse Resp BP Pulse Ox 04/04/20 10:46 98.4 F 75 16 124/73 98 04/04/20 08:00 100 04/04/20 07:38 98.3 F 73 16 121/77 100 04/04/20 03:04 98.2 F 71 17 132/86 96 Weight Weight 165 lb 14.4 oz Most Recent Monitor Data Heart Rate from ECG 72 NIBP 112/72 NIBP BP-Mean 85 Respiration from ECG 13 SpO2 100 I&O: 04/03/20 04/04/20 04/05/20 06:59 06:59 06:59 Intake Total 2660 1600 Balance 2660 1600 Result Diagrams: 04/03/20 03:36 04/03/20 03:36 Hospitalist ROS - Medication Medications: Active Medications Generic Name Dose Route Start Last Admin Trade Name Freq PRN Reason Stop Dose Admin Hydrocodone Bitart/Acetaminophen 1 tab 04/02/20 13:48 04/02/20 20:42 [place] 10/325 PO 1 tab Q6H PRN Administration Mild Pain (1-3) Cholecalciferol 2,000 units 04/03/20 09:00 04/04/20 08:19 Vitamin D3 PO 2,000 units DAILY FRENCH Administration Gabapentin 100 mg 04/02/20 21:00 04/03/20 21:03 Neurontin PO 100 mg HS FRENCH Administration Ketorolac Tromethamine 15 mg 04/02/20 18:00 04/04/20 12:36 Toradol IVP 04/05/20 18:01 15 mg Q6HR FRENCH Administration Pantoprazole Sodium 40 mg 04/03/20 09:00 04/04/20 08:19 Protonix PO 40 mg DAILY FRENCH Administration Sodium Chloride 10 ml 04/03/20 09:00 04/04/20 10:12 Flush - Normal Saline IVF 10 ml Q12HR FRENCH Administration - Exam General Appearance: awake alert Eye: PERRL, anicteric sclera ENT: no oropharyngeal lesions, moist mucosa Neck: supple, no JVD Heart: RRR, no murmur Respiratory: no wheezes, no rales Gastrointestinal: soft, non-tender, non-distended, normal bowel sounds Extremities: no cyanosis, no edema Neurological: cranial nerve grossly intact, no focal deficits Psychiatric: A&O x 3 Hosp A/P (1) Septic arthritis of shoulder, right Code(s): M00.9 - PYOGENIC ARTHRITIS, UNSPECIFIED Status: Acute Qualifiers: Septic arthritis organism: due to unspecified organism Qualified Code(s): M00.9 - Pyogenic arthritis, unspecified (2) Acute postoperative anemia due to expected blood loss Code(s): D62 - ACUTE POSTHEMORRHAGIC ANEMIA Status: Acute (3) Rheumatoid arthritis Code(s): M06.9 - RHEUMATOID ARTHRITIS, UNSPECIFIED Status: Chronic Qualifiers: Rheumatoid arthritis location: multiple sites Rheumatoid factor presence: unspecified presence Qualified Code(s): M06.9 - Rheumatoid arthritis, unspecified (4) COPD (chronic obstructive pulmonary disease) Status: Chronic Qualifiers: COPD type: unspecified COPD Qualified Code(s): J44.9 - Chronic obstructive pulmonary disease, unspecified (5) Hypertension Code(s): I10 - ESSENTIAL (PRIMARY) HYPERTENSION Status: Chronic Qualifiers: Hypertension type: essential hypertension Qualified Code(s): I10 - Essential (primary) hypertension (6) DVT (deep venous thrombosis) Code(s): I82.409 - ACUTE EMBOLISM AND THOMBOS UNSP DEEP VN UNSP LOWER EXTREMITY Status: Chronic Qualifiers: DVT location: lower extremity Chronicity: chronic Laterality: left - Plan recieved total of 2 u prbc 04/02 hemostable home meds as above d/w , he will be on vanc till , will need picc line and outpt antibiotic arrangement await shoulder cultures, blood cultures (may not grow any due to him being on antibiotics) is s/p removal of hard sarmiento from right shoulder reverse arthroplasty with incision and drainage 04/02/20 by Hb around 10g has recent h/o non occlusive dvt in left popliteal vein, restart jennifer, d/w
--- NOTE | 2020-04-04 13:17 | PRG ---
DATE OF SERVICE: 04/04/2020 SUBJECTIVE: Mr. Moore has good pain control. He has been seen by Dr. Cardenas and I understand that the plan is to receive IV vancomycin for approximately 6 weeks. The patient has been afebrile. Vital signs have been stable. Last laboratory showed from yesterday, hemoglobin 10.3, hematocrit 31.7. The right upper extremity remains neurovascularly intact. PLAN: The patient can be restarted on his Eliquis. He has a nonocclusive DVT in the left popliteal vein. He has been off the Eliquis now for about 5 days and it is safe to go ahead and restart that. The patient will need to have a PICC line inserted, which probably will be on Monday and then he can probably be discharged the following day on Monday. He will follow up in my office 2 weeks from discharge. Job ID: [id number]
[2020-04-04] MEDS: HYDROcodone/Acetaminophen 10/325 mg Tablet PO PRN (17:50)
[2020-04-04] MEDS: Vancomycin 1 GM in Premix Bag 1 BAG IVPB SCH (20:00)
[2020-04-04] MEDS: Apixaban 5 MG TAB PO SCH (20:01)
[2020-04-04] MEDS: Gabapentin 100 MG CAP PO SCH (20:01)
[2020-04-04] MEDS ORDERED: Artificial Tear Sol 15 ML BOT EA EYE PRN (21:31)
[2020-04-05] MEDS ORDERED: Senokot S 8.6-50 MG TAB PO PRN (01:51)
[2020-04-05] MEDS: Vancomycin 1 GM in Premix Bag 1 BAG IVPB SCH ×3 (03:29→20:42)
[2020-04-05] MEDS: Ketorolac Tromethamine 30 MG/ML VIAL IVP SCH ×3 (05:28→18:39)
[2020-04-05 05:52] VITALS: BMI 28.5
[2020-04-05 06:26] LABS: #Eosinphils 0.3 thou/uL (0.0-0.7); #Lymphocytes 1.9 thou/uL (1.20-3.40); #Monocytes 0.6 thou/uL (0.11-0.59); #Neutrophils 2.8 thou/uL (1.40-6.50); %Basophils 0.5 % (0.0-1.0); %Eosinophils 4.8 % (0.0-10.0); %Lymphocytes 33.6 % (21.0-51.0); %Monocytes 10.6 % (0.0-10.0); %Neutrophils 50.5 % (42.0-75.0); Hemoglobin 8.2 g/dL (14.0-18.0); Mean Corpuscular HGB CONC 31.8 g/dL (32.0-36.0); Mean Corpuscular Hemoglobin 26.4 pg (27.0-31.0); Mean Platelet Volume 8.2 fL (7.4-10.4); Platelet Count 256 thou/uL (130-400); RBC Distribution Width 14.7 % (11.5-14.5); Red Blood Cell (RBC) Count 3.11 mill/uL (4.70-6.10); White Blood Cell (WBC) Count 5.5 thou/uL (4.8-10.8)
[2020-04-05 06:44] LABS: Anion Gap 11 mmol/L (10-20); BUN (Urea Nitrogen) 8 mg/dL (8.4-25.7); Calc. Creatinine Clearance 124 mL/min (70-130); Carbon Dioxide 23 mmol/L (23-31); Chloride 110 mmol/L (98-107); Estimated GFR-MDRD Greater than 90; Glucose 97 mg/dL (80-115); Potassium 3.7 mmol/L (3.5-5.1); Sodium 140 mmol/L (136-145)
[2020-04-05] MEDS: Apixaban 5 MG TAB PO SCH ×2 (08:43→20:42)
[2020-04-05] MEDS: Hydrochlorothiazide 25 MG TAB PO SCH (08:44)
[2020-04-05] MEDS: Cholecalciferol 1,000 UNITS (25 MCG) TAB PO SCH (08:44)
[2020-04-05] MEDS: Polyethylene Glycol 3350 17 GM Packet PO SCH (08:45)
[2020-04-05] MEDS: Amlodipine 5 MG TAB PO SCH (08:45)
[2020-04-05] MEDS ORDERED: Non-Formulary Item 1 EACH (Hydrochlorothiazide [Hydrochlorothiazide] 12.5 MG) PO SCH (09:00)
[2020-04-05 11:40] LABS: Vancomycin, Trough 16.9 ug/mL
--- NOTE | 2020-04-05 12:10 | PDOC.HOSPP ---
- Subjective Encounter Date: 04/05/20 Encounter Time: 08:00 Subjective: pain is better in his right shoulder no sob, has not ambulated yet with PT (stood up and helped with transfers) - Objective Vital Signs & Weight: Vital Signs (12 hours) Temp Pulse Resp BP Pulse Ox 04/05/20 08:45 72 04/05/20 08:00 97 04/05/20 07:42 98.1 F 72 16 123/77 97 04/05/20 04:00 98.3 F 69 18 127/76 98 Weight Weight 166 lb Most Recent Monitor Data Heart Rate from ECG 72 NIBP 112/72 NIBP BP-Mean 85 Respiration from ECG 13 SpO2 100 I&O: 04/04/20 04/05/20 04/06/20 06:59 06:59 06:59 Intake Total 1600 880 Output Total 650 Balance 1600 230 Result Diagrams: 04/05/20 05:48 04/05/20 05:48 Hospitalist ROS - Medication Medications: Active Medications Generic Name Dose Route Start Last Admin Trade Name Freq PRN Reason Stop Dose Admin Hydrocodone Bitart/Acetaminophen 1 tab 04/02/20 13:48 04/04/20 17:50 [place] 10/325 PO 1 tab Q6H PRN Administration Mild Pain (1-3) Amlodipine Besylate 5 mg 04/05/20 09:00 04/05/20 08:45 Norvasc PO 5 mg DAILY FRENCH Administration Apixaban 5 mg 04/04/20 21:00 04/05/20 08:43 Eliquis PO 5 mg BID FRENCH Administration Artificial Tears 0 drop 04/04/20 21:31 04/04/20 22:30 Liquitears 15ml Bottle EA EYE 1 drop PRN PRN Administration DRY EYES Cholecalciferol 2,000 units 04/03/20 09:00 04/05/20 08:44 Vitamin D3 PO 2,000 units DAILY FRENCH Administration Gabapentin 100 mg 04/02/20 21:00 04/04/20 20:01 Neurontin PO 100 mg HS FRENCH Administration Hydrochlorothiazide 12.5 mg 04/05/20 09:00 04/05/20 08:44 Hydrochlorothiazide PO 12.5 mg DAILY FRENCH Administration Vancomycin HCl 1 gm/ Device 200 mls @ 200 mls/hr 04/04/20 20:00 04/05/20 03: 29 IVPB 200 mls 0400,1200,2000 FRENCH Administration Ketorolac Tromethamine 15 mg 04/02/20 18:00 04/05/20 05:28 Toradol IVP 04/05/20 18:01 15 mg Q6HR FRENCH Administration Pantoprazole Sodium 40 mg 04/03/20 09:00 04/05/20 08:44 Protonix PO 40 mg DAILY FRENCH Administration Polyethylene Glycol 17 gm 04/05/20 09:00 04/05/20 08:45 Miralax PO Not Given DAILY FRENCH Senna/Docusate Sodium 2 tab 04/05/20 01:51 04/05/20 05:38 Senokot S PO 2 tab BID PRN Administration Constipation Sodium Chloride 10 ml 04/03/20 09:00 04/05/20 08:45 Flush - Normal Saline IVF 10 ml Q12HR FRENCH Administration - Exam General Appearance: awake alert Eye: PERRL, anicteric sclera ENT: no oropharyngeal lesions, moist mucosa Neck: supple, no JVD Heart: RRR, no murmur, no gallops Respiratory: no wheezes, no rales Gastrointestinal: soft, non-tender, non-distended, normal bowel sounds Extremities: no cyanosis, no edema Neurological: cranial nerve grossly intact, no focal deficits Psychiatric: A&O x 3 Hosp A/P (1) Septic arthritis of shoulder, right Code(s): M00.9 - PYOGENIC ARTHRITIS, UNSPECIFIED Status: Acute Qualifiers: Septic arthritis organism: due to unspecified organism Qualified Code(s): M00.9 - Pyogenic arthritis, unspecified (2) Acute postoperative anemia due to expected blood loss Code(s): D62 - ACUTE POSTHEMORRHAGIC ANEMIA Status: Acute (3) Rheumatoid arthritis Code(s): M06.9 - RHEUMATOID ARTHRITIS, UNSPECIFIED Status: Chronic Qualifiers: Rheumatoid arthritis location: multiple sites Rheumatoid factor presence: unspecified presence Qualified Code(s): M06.9 - Rheumatoid arthritis, unspecified (4) COPD (chronic obstructive pulmonary disease) Status: Chronic Qualifiers: COPD type: unspecified COPD Qualified Code(s): J44.9 - Chronic obstructive pulmonary disease, unspecified (5) Hypertension Code(s): I10 - ESSENTIAL (PRIMARY) HYPERTENSION Status: Chronic Qualifiers: Hypertension type: essential hypertension Qualified Code(s): I10 - Essential (primary) hypertension (6) DVT (deep venous thrombosis) Code(s): I82.409 - ACUTE EMBOLISM AND THOMBOS UNSP DEEP VN UNSP LOWER EXTREMITY Status: Chronic Qualifiers: DVT location: lower extremity Chronicity: chronic Laterality: left - Plan recieved total of 2 u prbc 04/02 hemostable home meds as above d/w , he will be on vanc till may 14, will need picc line and outpt antibiotic arrangement await shoulder cultures (prelim are -ve), blood cultures are -ve is s/p removal of hard sarmiento from right shoulder reverse arthroplasty with incision and drainage 04/02/20 by Hb around 8g has recent h/o non occlusive dvt in left popliteal vein, restarted eliquis 04/04 , d/w dc plan is back to snf when picc line and if antibiotics can be done there ( currently on vanc tid...might need to be atleast q12h?).
[2020-04-05] MEDS: Gabapentin 100 MG CAP PO SCH (20:42)
[2020-04-05] MEDS: HYDROcodone/Acetaminophen 10/325 mg Tablet PO PRN (22:23)
[2020-04-06] MEDS: Vancomycin 1 GM in Premix Bag 1 BAG IVPB SCH ×3 (03:37→20:26)
[2020-04-06 04:51] LABS: #Eosinphils 0.3 thou/uL (0.0-0.7); #Lymphocytes 1.7 thou/uL (1.20-3.40); #Monocytes 0.6 thou/uL (0.11-0.59); #Neutrophils 3.3 thou/uL (1.40-6.50); %Basophils 0.3 % (0.0-1.0); %Eosinophils 5.1 % (0.0-10.0); %Lymphocytes 28.8 % (21.0-51.0); %Monocytes 9.7 % (0.0-10.0); %Neutrophils 56.1 % (42.0-75.0); Hemoglobin 8.4 g/dL (14.0-18.0); Mean Corpuscular HGB CONC 32.1 g/dL (32.0-36.0); Mean Corpuscular Hemoglobin 26.1 pg (27.0-31.0); Mean Corpuscular Volume 81.4 fL (78.0-98.0); Mean Platelet Volume 8.1 fL (7.4-10.4); Platelet Count 255 thou/uL (130-400); RBC Distribution Width 14.7 % (11.5-14.5); Red Blood Cell (RBC) Count 3.21 mill/uL (4.70-6.10); White Blood Cell (WBC) Count 5.9 thou/uL (4.8-10.8)
[2020-04-06 05:16] LABS: Anion Gap 10 mmol/L (10-20); BUN (Urea Nitrogen) 8 mg/dL (8.4-25.7); Calc. Creatinine Clearance 126 mL/min (70-130); Calcium 8.2 mg/dL (7.8-10.44); Carbon Dioxide 25 mmol/L (23-31); Chloride 108 mmol/L (98-107); Estimated GFR-MDRD Greater than 90; Glucose 95 mg/dL (80-115); Potassium 3.3 mmol/L (3.5-5.1); Sodium 140 mmol/L (136-145)
--- NOTE | 2020-04-06 09:50 | SPC ---
Left upper extremity PICC placement sonographic guided HISTORY: Osteomyelitis. FINDINGS: After explaining the procedure and answering all questions, left upper extremity was preppe d and draped in usual sterile fashion. Sterile technique, buffered local anesthesia, sonographic guidance, and a 22-gauge needle were used t o carefully access the left brachial vein. Standard technique was used to place the tip of a 5 [place] single lumen PICC so that the tip lies at level of the cavoatrial junction. Catheter was flushed and secured externally. Patient tolerated the procedure well and was returned in unchanged condition. Fluoroscopy time 0.3 minutes. IMPRESSION : Left upper extremity PICC is ready for use.
[2020-04-06] MEDS: HYDROcodone/Acetaminophen 10/325 mg Tablet PO PRN (11:10)
[2020-04-06] MEDS: Hydrochlorothiazide 25 MG TAB PO SCH (11:12)
[2020-04-06] MEDS: Cholecalciferol 1,000 UNITS (25 MCG) TAB PO SCH (11:12)
[2020-04-06] MEDS: Amlodipine 5 MG TAB PO SCH (11:12)
[2020-04-06] MEDS: Apixaban 5 MG TAB PO SCH ×2 (11:18→20:26)
[2020-04-06] MEDS: Polyethylene Glycol 3350 17 GM Packet PO SCH (11:18)
--- NOTE | 2020-04-06 14:33 | PDOC.HOSPP ---
- Subjective Encounter Date: 04/06/20 Subjective: Patient reports feeling fine, denies chest pain, difficulty breathing. Some pain in right shoulder. - Objective Vital Signs & Weight: Vital Signs (12 hours) Temp Pulse Resp BP BP Pulse Ox 04/06/20 11:37 98.4 F 79 12 135/78 99 04/06/20 11:12 73 04/06/20 08:01 98.2 F 73 128/74 100 04/06/20 04:01 98.0 F 65 16 129/75 99 Weight Weight 167 lb Most Recent Monitor Data Heart Rate from ECG 72 NIBP 112/72 NIBP BP-Mean 85 Respiration from ECG 13 SpO2 100 I&O: 04/05/20 04/06/20 04/07/20 06:59 06:59 06:59 Intake Total 880 1885 Output Total 650 2026 Balance 230 -142 Result Diagrams: 04/06/20 04:30 04/06/20 04:30 Hospitalist ROS - Review of Systems Constitutional: denies: fever, chills Respiratory: denies: cough, shortness of breath Cardiovascular: denies: chest pain, palpitations Gastrointestinal: denies: nausea, vomiting Musculoskeletal: reports: shoulder pain - Medication Medications: Active Medications Generic Name Dose Route Start Last Admin Trade Name Freq PRN Reason Stop Dose Admin Hydrocodone Bitart/Acetaminophen 1 tab 04/02/20 13:48 04/05/20 22:23 [place] 10/325 PO 1 tab Q6H PRN Administration Mild Pain (1-3) Hydrocodone Bitart/Acetaminophen 2 tab 04/02/20 13:48 04/06/20 11:10 [place] 10/325 PO 2 tab Q6H PRN Administration Moderate Pain (4-6) Amlodipine Besylate 5 mg 04/05/20 09:00 04/06/20 11:12 Norvasc PO 5 mg DAILY FRENCH Administration Apixaban 5 mg 04/04/20 21:00 04/06/20 11:18 Eliquis PO 5 mg BID FRENCH Administration Artificial Tears 0 drop 04/04/20 21:31 04/04/20 22:30 Liquitears 15ml Bottle EA EYE 1 drop PRN PRN Administration DRY EYES Cholecalciferol 2,000 units 04/03/20 09:00 04/06/20 11:12 Vitamin D3 PO 2,000 units DAILY FRENCH Administration Gabapentin 100 mg 04/02/20 21:00 04/05/20 20:42 Neurontin PO 100 mg HS FRENCH Administration Hydrochlorothiazide 12.5 mg 04/05/20 09:00 04/06/20 11:12 Hydrochlorothiazide PO 12.5 mg DAILY FRENCH Administration Vancomycin HCl 1 gm/ Device 200 mls @ 200 mls/hr 04/04/20 20:00 04/06/20 11: 22 IVPB 200 mls 0400,1200,2000 FRENCH Administration Pantoprazole Sodium 40 mg 04/03/20 09:00 04/06/20 11:13 Protonix PO 40 mg DAILY FRENCH Administration Polyethylene Glycol 17 gm 04/05/20 09:00 04/06/20 11:18 Miralax PO 17 gm DAILY FRENCH Administration Senna/Docusate Sodium 2 tab 04/05/20 01:51 04/05/20 05:38 Senokot S PO 2 tab BID PRN Administration Constipation Sodium Chloride 10 ml 04/03/20 09:00 04/06/20 11:18 Flush - Normal Saline IVF 10 ml Q12HR FRENCH Administration - Exam General Appearance: NAD, awake alert Eye: PERRL, anicteric sclera ENT: normocephalic atraumatic Heart: RRR, no murmur Respiratory: CTAB, normal chest expansion Gastrointestinal: soft, non-tender, non-distended Extremities: no cyanosis Neurological: cranial nerve grossly intact Psychiatric: normal affect, normal behavior, A&O x 3 Hosp A/P (1) Septic arthritis of shoulder, right Code(s): M00.9 - PYOGENIC ARTHRITIS, UNSPECIFIED Status: Acute Qualifiers: Septic arthritis organism: due to unspecified organism Qualified Code(s): M00.9 - Pyogenic arthritis, unspecified (2) DVT (deep venous thrombosis) Code(s): I82.409 - ACUTE EMBOLISM AND THOMBOS UNSP DEEP VN UNSP LOWER EXTREMITY Status: Chronic Qualifiers: DVT location: lower extremity Chronicity: chronic Laterality: left (3) COPD (chronic obstructive pulmonary disease) Status: Chronic Qualifiers: COPD type: unspecified COPD Qualified Code(s): J44.9 - Chronic obstructive pulmonary disease, unspecified (4) Hypertension Code(s): I10 - ESSENTIAL (PRIMARY) HYPERTENSION Status: Chronic Qualifiers: Hypertension type: essential hypertension Qualified Code(s): I10 - Essential (primary) hypertension (5) Rheumatoid arthritis Code(s): M06.9 - RHEUMATOID ARTHRITIS, UNSPECIFIED Status: Chronic Qualifiers: Rheumatoid arthritis location: multiple sites Rheumatoid factor presence: unspecified presence Qualified Code(s): M06.9 - Rheumatoid arthritis, unspecified - Plan H/H stable Received total of 2 u prbc 04/02 s/p removal of hard sarmiento from right shoulder reverse arthroplasty with incision and drainage 04/02/20 by d/w , he will be on vanc till may 14 will need picc line and outpt antibiotic arrangement await shoulder cultures (prelim are -ve), blood cultures are -ve has recent h/o non occlusive dvt in left popliteal vein, restarted eliquis 04/04 , d/w dc plan is back to snf
[2020-04-06] MEDS: Gabapentin 100 MG CAP PO SCH (20:26)
--- NOTE | 2020-04-06 21:39 | PRG ---
DATE OF SERVICE: 04/06/2020 SUBJECTIVE: Mild pain in the right shoulder. PICC line inserted. No abdominal pain. Voiding without difficulty, eating, and having bowel movements without diarrhea. OBJECTIVE: VITAL SIGNS: Normal. O2 saturations are normal. EXTREMITIES: Right shoulder dressing and splint in the right upper extremity. LUNGS: Symmetric. Clear breath sounds. HEART: S1 and S2. Regular rate. ABDOMEN: Soft, not distended or tender. No ascites. No bladder distention. EXTREMITIES: Moves extremities equally with limitations imposed by the right upper extremity process. LABORATORY DATA: Sodium 140, creatinine 0.59, bilirubin 0.4, AST 10, ALT less than 7. White cell count 5.9, hemoglobin 8.4, platelets 255, normal differential. No growth in the microbiology samples yet. The previous one from February with propionibacterium is Staph epi. The patient is currently on vancomycin. ASSESSMENT AND DISCUSSION: Rheumatoid arthritis. Multiple joint involvement with various replacements, now infection of the right shoulder with propionibacterium. In addition to that, there was a coagulase-negative Staphylococcus as well isolated implant removed and now the plan is to continue either Rocephin or protracted vancomycin and date of therapy will be sometime around May 14 with weekly labs. Job ID: [id number]
[2020-04-07] MEDS: Vancomycin 1 GM in Premix Bag 1 BAG IVPB SCH (04:20)
[2020-04-07] MEDS: Hydrochlorothiazide 25 MG TAB PO SCH (08:47)
[2020-04-07] MEDS: Apixaban 5 MG TAB PO SCH (08:47)
[2020-04-07] MEDS: HYDROcodone/Acetaminophen 10/325 mg Tablet PO PRN ×2 (08:48→18:21)
[2020-04-07] MEDS: Cholecalciferol 1,000 UNITS (25 MCG) TAB PO SCH (08:48)
[2020-04-07] MEDS: Amlodipine 5 MG TAB PO SCH (08:50)
[2020-04-07] MEDS: Polyethylene Glycol 3350 17 GM Packet PO SCH (08:50)
[2020-04-07 11:29] LABS: Vancomycin, Trough 22.2 ug/mL
[2020-04-07] MEDS ORDERED: Vancomycin 1.5 GRAM/300 ML BAG 1.5 GM in Premix Bag 1 BAG IVPB SCH ×2 (12:00→16:00)
[2020-04-07 16:45] VITALS: TEMP 99.2
[2020-04-07 17:58] VITALS: BP 118/75
--- NOTE | 2020-04-07 21:05 | PDOC.HOSPP ---
- Subjective Encounter Date: 04/07/20 Encounter Time: 10:30 Subjective: Patient seen and examined for septic arthritis. Pain controlled with current management. Denies any fever or chills. No nausea or vomiting. - Objective Vital Signs & Weight: Vital Signs (12 hours) Temp Pulse Resp BP BP Pulse Ox 04/07/20 16:45 99.2 F 76 16 118/76 98 04/07/20 12:00 98.2 F 76 14 118/75 98 Weight Weight 171 lb Most Recent Monitor Data Heart Rate from ECG 72 NIBP 112/72 NIBP BP-Mean 85 Respiration from ECG 13 SpO2 100 I&O: 04/06/20 04/07/20 04/08/20 06:59 06:59 06:59 Intake Total 1884 1929 1450 Output Total 2026 1999 Balance -142 -70 1450 Result Diagrams: 04/06/20 04:30 04/06/20 04:30 Radiology Reviewed by me: Yes (Shoulder x-rayreviewed) Hospitalist ROS - Review of Systems Respiratory: denies: cough, dry, shortness of breath, hemoptysis, SOB with excertion, pleuritic pain, sputum, wheezing, other Cardiovascular: denies: chest pain, palpitations, orthopnea, paroxysmal noc. dyspnea, edema, light headedness, other - Exam General Appearance: NAD Heart: RRR, no gallops Respiratory: no wheezes Gastrointestinal: soft, non-tender, normal bowel sounds Extremities: no cyanosis Neurological: no new deficit Hosp A/P (1) Septic arthritis of shoulder, right Code(s): M00.9 - PYOGENIC ARTHRITIS, UNSPECIFIED Status: Acute Qualifiers: Septic arthritis organism: due to unspecified organism Qualified Code(s): M00.9 - Pyogenic arthritis, unspecified (2) Hypertension Code(s): I10 - ESSENTIAL (PRIMARY) HYPERTENSION Status: Chronic Qualifiers: Hypertension type: essential hypertension Qualified Code(s): I10 - Essential (primary) hypertension (3) Rheumatoid arthritis Code(s): M06.9 - RHEUMATOID ARTHRITIS, UNSPECIFIED Status: Chronic Qualifiers: Rheumatoid arthritis location: multiple sites Rheumatoid factor presence: unspecified presence Qualified Code(s): M06.9 - Rheumatoid arthritis, unspecified (4) COPD (chronic obstructive pulmonary disease) Status: Chronic Qualifiers: COPD type: unspecified COPD Qualified Code(s): J44.9 - Chronic obstructive pulmonary disease, unspecified - Plan DVT proph w/SCDs 04/07 Continue IV vancomycin until May 14 per infectious disease continue current pain regimen. Continue hydrochlorothiazide, gabapentin and Protonix. Patient has history of DVTon Eliquis. Await antibiotic setup at the nursing facility.
[2020-04-08] MEDS ORDERED: Saccharomyces boulardii 250 MG CAP PO SCH (09:00)
--- NOTE | 2020-04-08 11:47 | DIS ---
DATE OF ADMISSION: 04/02/2020 DATE OF DISCHARGE: 04/07/2020 HISTORY OF PRESENT ILLNESS: See admission history and physical. HOSPITAL COURSE: The patient was worked up medically prior to admission, found to be stable for surgery. On the date of admission, the patient was taken to the operating room and under general anesthetic, the patient underwent removal of a reverse total shoulder replacement and irrigation and debridement of right shoulder. Deep cultures were obtained. The hospitalist was consulted for all of his medical problems and they remained stable. Dr. Cardenas was consulted for Infectious Disease, and the patient was placed on IV vancomycin. Arrangements were made and the patient had a PICC line performed on 04/06. The patient remained afebrile. Vital signs remained stable. His hemoglobin did drop to a low of 8.2, but came up the following day to 8.4, and the patient was not symptomatic with it. Arrangements were made for the patient to go back to [facility], where he will continue with IV antibiotics for several weeks and this will be determined by Dr. Cardenas. He will follow up in my office in 2 weeks. Job ID: [id number]
[2020-04-09] MEDS ORDERED: Methotrexate Sodium 2.5 MG TAB PO SCH (09:00)
== END 2020-04-07 18:54 | DRG 493 ==
LOC: SDC 09:22 → IMCU/EMU 13:38 → SJJU 04-03 12:33
PROVIDERS: ADMIT Orthopaedic Surgery; ATTEND Orthopaedic Surgery
PROC: 0PBC0ZZ Excision of Right Humeral Head, Open Approach (ICD-10-PCS; principal; 2020-04-02)
PROC: 0RPJ0JZ Removal of Synthetic Substitute from Right Shoulder Joint, Open Approach (ICD-10-PCS; 2020-04-02)
PROC: 30233N1 Transfusion of Nonautologous Red Blood Cells into Peripheral Vein, Percutaneous Approach (ICD-10-PCS; 2020-04-02)
PROC: 02HV33Z Insertion of Infusion Device into Superior Vena Cava, Percutaneous Approach (ICD-10-PCS; 2020-04-06)
DX: T84.59XA Infection and inflammatory reaction due to other internal joint prosthesis, initial encounter (principal); M00.9 Pyogenic arthritis, unspecified; D62 Acute posthemorrhagic anemia; I82.502 Chronic embolism and thrombosis of unspecified deep veins of left lower extremity; T84.029A Dislocation of unspecified internal joint prosthesis, initial encounter; Y83.9 Surgical procedure, unspecified as the cause of abnormal reaction of the patient, or of later complication, without mention of misadventure at the time of the procedure; M06.9 Rheumatoid arthritis, unspecified; I10 Essential (primary) hypertension; J44.9 Chronic obstructive pulmonary disease, unspecified; Z79.899 Other long term (current) drug therapy
CPT/HCPCS: 36415; 36430; 36569; 80048; 80076; 80202; 85025; 85027; 86850; 86900; 86901; 87040; 87070; 87205; 87635; 93005; 93010; J0690; J1580; J1644; J1885; J1956; J2370; J2405; J2704; J3010; J3370; J7050; P9016; U0003